=== PATIENT | female | born 1990 | race Caucasian/White ===

== ENCOUNTER 2017-07-06 07:47 | Emergency (ER) | payer SELFPAY ==
[~2017-07-06] VITALS: Ht 165.1 cm; Wt 59.9 kg
--- OUTSIDE RECORDS SUMMARY | 2017-07-06 07:55 | XMS REPORT | Clinical Summary ---
Author Author Admin, ALEXA Organization [facility] Address Unknown Phone Unavailable Allergies, Adverse Reactions, Alerts Allergy Name Reaction Description Start Date Severity Status Provider CINDY Critical Active David Chew MD LATEX Critical Active Katie Ghotra MD Conditions or Problems Problem Name Problem Code Onset Date Status Entry Date Provider Comment Standard Description Annotate FH DIABETES V18.0 Active David Chew MD Family history of diabetes mellitus SUPERVISION OF OTHER NORMAL V22.1 Active David Chew MD Supervision of other normal DEPRESSION 311 Active Katie Ghotra MD Depressive disorder, not elsewhere classified VAGINAL DISCHARGE 623.5 Active Katie Ghotra MD Leukorrhea, not specified as infective TOBACCOISM IN 649.03 Active Katie Ghotra MD Tobacco use disorder complicating , childbirth, or the puerperium, antepartum condition or complication Pleurisy 511.0 Active David Chew MD Pleurisy without mention of effusion or current tuberculosis V22.2 Active David Chew MD state, incidental Vaginal bleeding, first trimester 641.90 Active Jaycob Delvalle MD Unspecified antepartum hemorrhage, unspecified as to episode of care or not applicable Miscarriage 634.90 Active David Chew MD Spontaneous , unspecified, without mention of complication Trichomonal infection 131.9 Active David Chew MD Trichomoniasis, unspecified Medication List Medication Instructions Start Date Stop Date Generic Name NDC Status Provider Patient Instruction FLAGYL 500 MG TAB 1 tablet by mouth three times daily METRONIDAZOLE 39399903035 Active David Chew MD Active TRAMADOL HCL 50 MG TABS 1 po q6hrs prn pain TRAMADOL HCL 29882682840 Active David Chew MD Active PREDNISONE 20 MG TAB 2 tabs daily for 3 days, 1 tab daily for 3 days, 1/2 tab daily for 2 days PREDNISONE 21603614647 No Longer Active Jaycob Delvalle MD Active FLAGYL 500 MG TABS 1 tab BID for 7 days METRONIDAZOLE 01122061728 No Longer Active David Chew MD Active AMOXICILLIN 500 MG CAPS 1 CAP PO TID AMOXICILLIN 30831687064 No Longer Active Katie Ghotra MD Active FLAGYL 250 MG TABS 1 TAB PO BID METRONIDAZOLE 82959007084 No Longer Active Katie Ghotra MD Active PREDNISONE 20 MG TAB 3 tabs daily for 3 days, 2 tabs daily for 3 days, 1 tab daily for 3 days, 1/2 tab daily for 3 days PREDNISONE 98605416629 No Longer Active David Chew MD Active [facility] 28-0.8 MG TABS VIT-FE FUMARATE-FA 06890367682 Active David Chew MD Active FLAGYL 250 MG TABS 1 TAB PO BID FLAGYL 250 MG TABS 540241 METRONIDAZOLE Inactive AMOXICILLIN 500 MG CAPS 1 CAP PO TID AMOXICILLIN 500 MG CAPS 834487 AMOXICILLIN Inactive FLAGYL 500 MG TABS 1 tab BID for 7 days FLAGYL 500 MG TABS 734839 METRONIDAZOLE Inactive PREDNISONE 20 MG TAB 2 tabs daily for 3 days, 1 tab daily for 3 days, 1/2 tab daily for 2 days PREDNISONE 20 MG TAB 082356 PREDNISONE Inactive PREDNISONE 20 MG TAB 3 tabs daily for 3 days, 2 tabs daily for 3 days, 1 tab daily for 3 days, 1/2 tab daily for 3 days PREDNISONE 20 MG TAB 614871 PREDNISONE Inactive Immunizations Vaccine Administration Date Value Standard Description Adacel (Tetanus, reduced Diphtheria, and acellular Pertussis Immunization) Adacel [[id number]] tetanus toxoid, reduced diphtheria toxoid, and acellular pertussis vaccine, adsorbed hepatitis B vaccine series no hepatitis B vaccine, unspecified formulation Vital Signs Date Name Value Unit Range Description blood pressure, diastolic - 8462-4 69 mm[Hg] BP finley blood pressure, systolic - 8480-6 115 mm[Hg] BP sys pulse rate E&M - 8867-4 111 /min Heart rate temperature E&M 99.9 [degF] Body temperature weight E&M - 3141-9 128 [lb_av] Weight Measured blood pressure, diastolic - 8462-4 61 mm[Hg] BP finley blood pressure, systolic - 8480-6 113 mm[Hg] BP sys pulse rate E&M - 8867-4 88 /min Heart rate temperature E&M 97.6 [degF] Body temperature weight E&M - 3141-9 131.5 [lb_av] Weight Measured blood pressure, diastolic - 8462-4 55 mm[Hg] BP finley blood pressure, systolic - 8480-6 90 mm[Hg] BP sys pulse rate E&M - 8867-4 99 /min Heart rate temperature E&M 97.4 [degF] Body temperature weight E&M - 3141-9 131.30 [lb_av] Weight Measured Encounters Code Encounter Date Provider Facility CPT-30386 Level 3 Est. Patient 18:33:30 CDT David Chew MD [facility] CPT-27810 Level 3 Est. Patient 15:42:57 CDT David Chew MD [facility] CPT-00319 Level 3 Est. Patient 17:04:12 CDT Jaycob Delvalle MD [facility] CPT-30702 Level 3 Est. Patient 13:47:10 CDT David Chew MD [facility] Procedures Code Procedure Name Date Entry Date Standard Description CPT-87242 [facility] Quant - LAB USE ONLY 17:05:18 CDT CPT-16896 Venipuncture Draw Fee 17:05:18 CDT CPT-01824 [facility] Quant - LAB USE ONLY 15:51:05 CDT CPT-55394 Venipuncture Draw Fee 15:51:05 CDT CPT-91501 Wet Mount - LAB USE ONLY 17:14:30 CDT CPT-50925 Administration single or combination vaccine inc oral 12 :27:32 CDT CPT-80851 Tdap 12:27:32 CDT CPT-20835 Visit 12:15:18 CDT CPT-97582 Visit 11:22:43 CDT CPT-92385 Spec Collection and Handling Fee 14:34:15 CDT CPT-43980 Visit 14:34:15 CDT
--- OUTSIDE RECORDS SUMMARY | 2017-07-06 07:55 | XMS REPORT | Clinical Summary ---
Author Author Admin, VINODE Organization [facility] Address Unknown Phone Unavailable Allergies, Adverse Reactions, [...] V22.2 Active David Chew MD state, incidental Medication List Medication Instructions Start Date Stop Date Generic Name NDC Status Provider Patient Instruction PREDNISONE 20 MG TAB 2 tabs daily for 3 days, 1 tab daily for 3 days, 1/2 tab daily for 2 days PREDNISONE 72934141277 Active David Chew MD Active FLAGYL 500 MG TABS 1 tab BID for 7 days METRONIDAZOLE 18387423297 No Longer Active David Chew MD Active AMOXICILLIN 500 MG CAPS 1 CAP PO TID AMOXICILLIN 93854875246 No Longer Active Katie Ghotra MD Active FLAGYL 250 MG TABS 1 TAB PO BID METRONIDAZOLE 04651309149 No Longer Active Katie Ghotra MD Active PREDNISONE 20 MG TAB 3 tabs daily for 3 days, 2 tabs daily for 3 days, 1 tab daily for 3 days, 1/2 tab daily for 3 days PREDNISONE 61906649149 No Longer Active David Chew MD Active [facility] 28-0.8 MG TABS VIT-FE FUMARATE-FA 00683821962 Active David Chew MD Active FLAGYL 250 MG TABS 1 TAB PO BID FLAGYL 250 MG TABS 045329 METRONIDAZOLE Inactive AMOXICILLIN 500 MG CAPS 1 CAP PO TID AMOXICILLIN 500 MG CAPS 717044 AMOXICILLIN Inactive FLAGYL 500 MG TABS 1 tab BID for 7 days FLAGYL 500 MG TABS 998106 METRONIDAZOLE Inactive PREDNISONE 20 MG TAB 3 tabs daily for 3 days, 2 tabs daily for 3 days, 1 tab daily for 3 days, 1/2 tab daily for 3 days PREDNISONE 20 MG TAB 986018 PREDNISONE Inactive Immunizations Vaccine Administration Date Value Standard Description Adacel (Tetanus, reduced Diphtheria, and acellular Pertussis Immunization) Adacel [[id number]] tetanus toxoid, reduced diphtheria toxoid, and acellular pertussis vaccine, adsorbed hepatitis B vaccine series no hepatitis B vaccine, unspecified formulation Vital Signs Date Name Value Unit Range Description blood pressure, diastolic - 8462-4 55 mm[Hg] BP finley blood pressure, systolic - 8480-6 90 mm[Hg] BP sys pulse rate E&M - 8867-4 99 /min Heart rate temperature E&M 97.4 [degF] Body temperature weight E&M - 3141-9 131.30 [lb_av] Weight Measured Encounters Code Encounter Date Provider Facility CPT-86569 Level 3 Est. Patient 13:47:10 CDT David Chew MD [facility] Procedures Code Procedure Name Date Entry Date Standard Description CPT-49359 Administration single or combination vaccine inc oral 12 :27:32 CDT CPT-55898 Tdap 12:27:32 CDT CPT-38898 Visit 12:15:18 CDT CPT-04497 Visit 11:22:43 CDT CPT-06868 Spec Collection and Handling Fee 14:34:15 CDT CPT-53662 Visit 14:34:15 CDT
--- OUTSIDE RECORDS SUMMARY | 2017-07-06 07:56 | XMS REPORT | Clinical Summary ---
Author Author Admin, ALEXA Organization [facility] Address Unknown Phone Unavailable Allergies, Adverse Reactions, [...] elsewhere classified VAGINAL DISCHARGE 623.5 Active Katie Ghorta MD Leukorrhea, not specified as infective TOBACCOISM [...] Spontaneous , unspecified, without mention of complication Medication List Medication Instructions Start Date Stop Date Generic Name NDC Status Provider Patient Instruction FLAGYL 500 MG TAB 1 tablet by mouth three times daily METRONIDAZOLE 84028837783 Active David Chew MD Active TRAMADOL HCL 50 MG TABS 1 po q6hrs prn pain TRAMADOL HCL 06387371046 Active David Chew MD Active PREDNISONE 20 MG TAB 2 tabs daily for 3 days, 1 tab daily for 3 days, 1/2 tab daily for 2 days PREDNISONE 25532837031 No Longer Active Jaycob Delvalle MD Active FLAGYL 500 MG TABS 1 tab BID for 7 days METRONIDAZOLE 28337619785 No Longer Active David Chew MD Active AMOXICILLIN 500 MG CAPS 1 CAP PO TID AMOXICILLIN 76362458321 No Longer Active Katie Ghotra MD Active FLAGYL 250 MG TABS 1 TAB PO BID METRONIDAZOLE 82088455913 No Longer Active Katie Ghotra MD Active PREDNISONE 20 MG TAB 3 tabs daily for 3 days, 2 tabs daily for 3 days, 1 tab daily for 3 days, 1/2 tab daily for 3 days PREDNISONE 99197903815 No Longer Active David Chew MD Active [facility] 28-0.8 MG TABS VIT-FE FUMARATE-FA 06462780275 Active David Chew MD Active FLAGYL 250 MG TABS 1 TAB PO BID FLAGYL 250 MG TABS 096575 METRONIDAZOLE Inactive AMOXICILLIN 500 MG CAPS 1 CAP PO TID AMOXICILLIN 500 MG CAPS 304406 AMOXICILLIN Inactive FLAGYL 500 MG TABS 1 tab BID for 7 days FLAGYL 500 MG TABS 420374 METRONIDAZOLE Inactive PREDNISONE 20 MG TAB 2 tabs daily for 3 days, 1 tab daily for 3 days, 1/2 tab daily for 2 days PREDNISONE 20 MG TAB 757955 PREDNISONE Inactive PREDNISONE 20 MG TAB 3 tabs daily for 3 days, 2 tabs daily for 3 days, 1 tab daily for 3 days, 1/2 tab daily for 3 days PREDNISONE 20 MG TAB 151574 PREDNISONE Inactive Immunizations Vaccine Administration Date Value Standard Description Adacel (Tetanus, reduced Diphtheria, and acellular Pertussis Immunization) Adacel [[id number]] tetanus toxoid, reduced diphtheria toxoid, and acellular pertussis vaccine, adsorbed hepatitis B vaccine series no hepatitis B vaccine, unspecified formulation Vital Signs Date Name Value Unit Range Description blood pressure, diastolic - 8462-4 61 mm[Hg] [...] Measured Encounters Code Encounter Date Provider Facility CPT-30840 Level 3 Est. Patient 15:42:57 CDT David Chew MD [facility] CPT-62222 Level 3 Est. Patient 17:04:12 CDT Jaycob Delvalle MD [facility] CPT-09922 Level 3 Est. Patient 13:47:10 CDT David Chew MD [facility] Procedures Code Procedure Name Date Entry Date Standard Description CPT-15826 [facility] Quant - LAB USE ONLY 15:51:05 CDT CPT-01380 Venipuncture Draw Fee 15:51:05 CDT CPT-41881 Wet Mount - LAB USE ONLY 17:14:30 CDT CPT-08381 Administration single or combination vaccine inc oral 12 :27:32 CDT CPT-09141 Tdap 12:27:32 CDT CPT-27578 Visit 12:15:18 CDT CPT-44138 Visit 11:22:43 CDT CPT-07547 Spec Collection and Handling Fee 14:34:15 CDT CPT-17284 Visit 14:34:15 CDT
--- OUTSIDE RECORDS SUMMARY | 2017-07-06 07:56 | XMS REPORT | Clinical Summary ---
Author Author Admin, ALEXA Organization [facility] Address Unknown Phone Unavailable Allergies, Adverse [...] to episode of care or not applicable Medication List Medication Instructions Start Date Stop Date Generic Name NDC Status Provider Patient Instruction PREDNISONE 20 MG TAB 2 tabs daily for 3 days, 1 tab daily for 3 days, 1/2 tab daily for 2 days PREDNISONE 02598697734 No Longer Active Jaycob Delvalle MD Active FLAGYL 500 MG TABS 1 tab BID for 7 days METRONIDAZOLE 63621353139 No Longer Active David Chew MD Active AMOXICILLIN 500 MG CAPS 1 CAP PO TID AMOXICILLIN 88212843423 No Longer Active Katie Ghotra MD Active FLAGYL 250 MG TABS 1 TAB PO BID METRONIDAZOLE 20779817641 No Longer Active Katie Ghotra MD Active PREDNISONE 20 MG TAB 3 tabs daily for 3 days, 2 tabs daily for 3 days, 1 tab daily for 3 days, 1/2 tab daily for 3 days PREDNISONE 30997046485 No Longer Active David Chew MD Active [facility] 28-0.8 MG TABS VIT-FE FUMARATE-FA 50765127814 Active David Chew MD Active FLAGYL 250 MG TABS 1 TAB PO BID FLAGYL 250 MG TABS 066519 METRONIDAZOLE Inactive AMOXICILLIN 500 MG CAPS 1 CAP PO TID AMOXICILLIN 500 MG CAPS 840728 AMOXICILLIN Inactive FLAGYL 500 MG TABS 1 tab BID for 7 days FLAGYL 500 MG TABS 868779 METRONIDAZOLE Inactive PREDNISONE 20 MG TAB 2 tabs daily for 3 days, 1 tab daily for 3 days, 1/2 tab daily for 2 days PREDNISONE 20 MG TAB 154703 PREDNISONE Inactive PREDNISONE 20 MG TAB 3 tabs daily for 3 days, 2 tabs daily for 3 days, 1 tab daily for 3 days, 1/2 tab daily for 3 days PREDNISONE 20 MG TAB 726154 PREDNISONE Inactive Immunizations Vaccine Administration Date Value Standard Description Adacel (Tetanus, reduced Diphtheria, and acellular Pertussis Immunization) Adacel [[id number]] tetanus toxoid, reduced diphtheria toxoid, and acellular [...] Measured Encounters Code Encounter Date Provider Facility CPT-73355 Level 3 Est. Patient 17:04:12 CDT Jaycob Delvalle MD [facility] CPT-66827 Level 3 Est. Patient 13:47:10 CDT David Chew MD [facility] Procedures Code Procedure Name Date Entry Date Standard Description CPT-93827 Wet Mount - LAB USE ONLY 17:14:30 CDT CPT-62313 Administration single or combination vaccine inc oral 12 :27:32 CDT CPT-06115 Tdap 12:27:32 CDT CPT-67133 Visit 12:15:18 CDT CPT-58698 Visit 11:22:43 CDT CPT-70993 Spec Collection and Handling Fee 14:34:15 CDT CPT-62243 Visit 14:34:15 CDT
--- OUTSIDE RECORDS SUMMARY | 2017-07-06 07:56 | XMS REPORT | Clinical Summary ---
Author Author Admin, ALEXA Organization [facility] Address Unknown Phone Unavailable Allergies, Adverse Reactions, [...] tablet by mouth three times daily METRONIDAZOLE 92068405155 Active David Chew MD Active TRAMADOL HCL 50 MG TABS 1 po q6hrs prn pain TRAMADOL HCL 27591748350 Active David Chew MD Active PREDNISONE 20 MG TAB 2 tabs daily for 3 days, 1 tab daily for 3 days, 1/2 tab daily for 2 days PREDNISONE 23529988218 No Longer Active Jaycob Delvalle MD Active FLAGYL 500 MG TABS 1 tab BID for 7 days METRONIDAZOLE 09902271425 No Longer Active David Chew MD Active AMOXICILLIN 500 MG CAPS 1 CAP PO TID AMOXICILLIN 16395523418 No Longer Active Katie Ghotra MD Active FLAGYL 250 MG TABS 1 TAB PO BID METRONIDAZOLE 00221646910 No Longer Active Katie Ghotra MD Active PREDNISONE 20 MG TAB 3 tabs daily for 3 days, 2 tabs daily for 3 days, 1 tab daily for 3 days, 1/2 tab daily for 3 days PREDNISONE 35075038710 No Longer Active David Chew MD Active [facility] 28-0.8 MG TABS VIT-FE FUMARATE-FA 35765366867 Active David Chew MD Active FLAGYL 250 MG TABS 1 TAB PO BID FLAGYL 250 MG TABS 383971 METRONIDAZOLE Inactive AMOXICILLIN 500 MG CAPS 1 CAP PO TID AMOXICILLIN 500 MG CAPS 288937 AMOXICILLIN Inactive FLAGYL 500 MG TABS 1 tab BID for 7 days FLAGYL 500 MG TABS 890566 METRONIDAZOLE Inactive PREDNISONE 20 MG TAB 2 tabs daily for 3 days, 1 tab daily for 3 days, 1/2 tab daily for 2 days PREDNISONE 20 MG TAB 005021 PREDNISONE Inactive PREDNISONE 20 MG TAB 3 tabs daily for 3 days, 2 tabs daily for 3 days, 1 tab daily for 3 days, 1/2 tab daily for 3 days PREDNISONE 20 MG TAB 345113 PREDNISONE Inactive Immunizations Vaccine Administration Date Value Standard Description Adacel (Tetanus, reduced Diphtheria, and acellular Pertussis Immunization) Adacel [[id number]] tetanus toxoid, reduced diphtheria toxoid, and acellular [...] Measured Encounters Code Encounter Date Provider Facility CPT-45640 Level 3 Est. Patient 18:33:30 CDT David Chew MD [facility] CPT-46281 Level 3 Est. Patient 15:42:57 CDT David Chew MD [facility] CPT-25723 Level 3 Est. Patient 17:04:12 CDT Jaycob Delvalle MD [facility] CPT-74760 Level 3 Est. Patient 13:47:10 CDT David Chew MD [facility] Procedures Code Procedure Name Date Entry Date Standard Description CPT-01747 [facility] Quant - LAB USE ONLY 15:51:05 CDT CPT-34514 Venipuncture Draw Fee 15:51:05 CDT CPT-09878 Wet Mount - LAB USE ONLY 17:14:30 CDT CPT-03362 Administration single or combination vaccine inc oral 12 :27:32 CDT CPT-28030 Tdap 12:27:32 CDT CPT-49172 Visit 12:15:18 CDT CPT-80867 Visit 11:22:43 CDT CPT-49401 Spec Collection and Handling Fee 14:34:15 CDT CPT-18799 Visit 14:34:15 CDT
--- OUTSIDE RECORDS SUMMARY | 2017-07-06 07:56 | XMS REPORT ---
Author Author [facility] Medical Staff Organization [facility] Address [address] [place], [place] [address] Phone [phone] Care Team Providers Care Shaker Repairer Name Role Phone MT CHEW MD PP [phone] Summary purpose TRANSITION OF CARE AUTO GENERATION Chief Complaint and Reason for Visit No authorized Reason for Visit (Admitting Diagnosis) is available for this visit. Problem list No authorized problems tracked for continuity of care are available for this visit. Encounters No authorized problems tracked for encounter diagnoses are available for this visit. Medications No medications recorded for this patient visit Allergies, adverse reactions, alerts Allergen Category Ingredient Status Reaction Severity Onset Latex Environmental Allergy LATEX Confirmed or Verified Hives Latex Drug Allergy Latex Confirmed or Verified Hives mushrooms Food Allergy mushrooms Confirmed or Verified Immunizations No immunizations recorded for this patient visit Relevant diagnostic tests and/or laboratory data RESULTS Routine Urinalysis 71-00-205378:00:00 Result Normal Range Units Color YELLOW Clarity Clear Specific [place] 1.020 1.003-1.035 pH 5.5 4.5-8.0 Glucose NEGATIVE Bilirubin NEGATIVE Ketones NEGATIVE Protein NEGATIVE Urobilinogen 0.2 0-0.2 E.U./dL Nitrites NEGATIVE Blood NEGATIVE Leukocytes NEGATIVE WBCs 5-10 RBCs 10-20 Squamous Epithelial 3+ Bacteria 1+ Mucous 1+ Yeast Rare Amount Chemistry 96-70-050084:30:00 Result Normal Range Units Sodium 139 134-145 mEq/l Potassium 4.2 3.5-5.1 mEq/l Chloride 106 98-107 mEq/l CO2 24.7 22-28 mEq/l Glucose 100 70-105 mg/dl BUN 17 7-18 mg/dl Creatinine 0.63 0.6-1.0 mg/dl Calcium L 8.1 8.4-10.2 mg/dl TP - Total Protein 7.3 6.0-8.3 g/dl Albumin 3.8 3.5-5 g/dl Bilirubin - Total 0.3 0.1-1.0 mg/dl AST 12 10-42 IU/L ALT 27 12-65 IU/L ALP 67 25-72 IU/L Osmolality L 279.2 280-300 mOsm/L Albumin/Globulin Ratio 1.1 0-8 Anion GAP 8.3 8-16 BUN/Creatinine Ratio H 27.0 10-20 Estimated GFR 118 >=60 mL/min/1.7 Hematology 15-09-554885:30:00 Result Normal Range Units WBC 6.4 4.8-10.8 103/uL RBC 4.5 4.2-5.4 106/uL HGB 13.6 12.0-16.0 g/dl HCT 41.3 36.9-47.0 % MCV 91.4 81-99 FL MCH 30.1 27-31 pg MCHC L 32.9 33-37 g/dl RDW 12.4 11.5-15.5 % PLT 318 130-400 103/uL MPV 9.0 7.3-10.4 FL Neutro % 43.8 40-70 % Lymph % H 41.7 20-40 % Green % 9.3 0-10.0 % Eos % 4.2 0-7.0 % Baso % 0.8 0-2 % Neutro # 2.8 1.5-7.5 103/uL Lymph # 2.7 0.9-4.0 103/uL Green # 0.6 0-0.8 103/uL Eos # 0.3 0-0.6 103/uL Baso # 0.1 0-0.1 103/uL Body Fluid [id number]:00:00 Result Normal Range Units pH 5.5 4.5-8.0 Radiology Results 15-49-563904:43:00 Abdomen 2 View PACs Image DATE OF EXAM: 2014 RAD 0037-ABDOMEN 2 VIEW : RADIOLOGY REPORT DATE OF SERVICE: 08/27/15 HISTORY: Abdominal pain ABDOMEN 2 VIEWS 0936 HOURS The bowel gas pattern is normal. This exam appears to have been performed with clothing in place. There is a curvilinear density overlying the left lower pelvis. There are no pathological calcifications. There is no free air, obstruction, or ileus. IMPRESSION: Left lower pelvic curvilinear density. This could reflect an opaque density in patient's clothing. The possibility of a retained surgical sponge or other ingested material within bowel is not entirely excluded. Correlate with any previous surgical history and consider a followup study to determine if this is truly an abnormal finding within the patient. MD ROBERTO Estrada/il08/27/2015 09:40:00 / 08/27/2015 09:49:30 cc:Dr. Mt Chew This document has been electronically Signed by: On: DATE OF EXAM: 2014 RAD 0037-ABDOMEN 2 VIEW : RADIOLOGY REPORT DATE OF SERVICE: 08/27/15 HISTORY: Abdominal pain ABDOMEN 2 VIEWS 0936 HOURS The bowel gas pattern is normal. This exam appears to have been performed with clothing in place. There is a curvilinear density overlying the left lower pelvis. There are no pathological calcifications. There is no free air, obstruction, or ileus. IMPRESSION: Left lower pelvic curvilinear density. This could reflect an opaque density in patient's clothing. The possibility of a retained surgical sponge or other ingested material within bowel is not entirely excluded. Correlate with any previous surgical history and consider a followup study to determine if this is truly an abnormal finding within the patient. MD ROBERTO Estrada/il08/27/2015 09:40:00 / 08/27/2015 09:49:30 cc:Dr. Mt Chew This document has been electronically Signed by: GRAY XIONG MD On: 20141:43P Result Amended on 2015-08-27 at 13:44:00. Previous status was DC. [id number]:30:00 Result Normal Range Units MPV 9.0 7.3-10.4 FL History of procedures Procedure Code Code Type Description Date Performed Performing Physician 73782 CPT-4 ROUTINE VENIPUNCTURE 08-27-2015 YULIYA VILLANUEVA 61488 CPT-4 X-RAY EXAM OF ABDOMEN 08-27-2015 YULIYA VILLANUEVA 45125 CPT-4 COMPREHEN METABOLIC PANEL 08-27-2015 YULIYA VILLANUEVA 70634 CPT-4 URINALYSIS, AUTO W/SCOPE 08-27-2015 YULIYA VILLANUEVA 34200 CPT-4 URINE TEST 08-27-2015 YULIYA VILLANUEVA 90782 CPT-4 COMPLETE CBC W/AUTO DIFF WBC 08-27-2015 YULIYA VILLANUEVA 29816 CPT-4 HELICOBACTER PYLORI 08-27-2015 YULIYA VILLANUEVA J2405 CPT-4 ONDANSETRON HCL INJECTION 08-27-2015 YULIYA VILLANUEVA 98542 CPT-4 EMERGENCY DEPT VISIT 08-27-2015 YULIYA RICH 50661 CPT-4 THER/PROPH/DIAG INJ, IV PUSH 08-27-2015 YULIYA RICH 73657 CPT-4 EMERGENCY DEPT VISIT 08-27-2015 YULIYA VILLANUEVA Functional status Functional Status Finding Observation Time Abdomen Appearance flat 42-11-491724:05 Abdomen soft 40-14-132940:05 Bowel Sounds present 12-76-574490:05 Urination normal 11-73-563547:05 Quality sym/unlabored 71-50-617588:05 Cough absent :05 Secretions no 64-81-763263:05 Breath Sounds RUL clear :05 Breath Sounds RML clear 57-32-328922:05 Breath Sounds RLL clear :05 Breath Sounds LIA clear :05 Breath Sounds LLL clear 63-49-812123:05 Airway natural 74-52-635034:05 Chest Tube no 36-50-472867:05 Oxygen no :50 Temp >100.4 no 83-66-899158:50 Temp <96.8 no 72-72-873887:50 Chills with rigors no :50 HR > 90bpm no 57-25-088075:50 Respirations > 20 no 88-95-087169:50 Systolic <90 no 58-13-101767:50 headache stiff neck no 40-00-299472:50 WBC > 55565 no 52-88-276380:50 WBC < 4000 no 34-72-704730:50 Rapid Resp no 69-67-685361:05 IV Site Location L hand 98-09-052234:25 IV Type peripheral 34-27-837651:50 IV Site Information discontinued 63-61-207904:50 IV Site Start Attmpt 1 times Comment: started by James KAUR student 79-20-861522:25 IV Site Dayron 20 94-26-776466:25 IV Site Appearance WNL 20-00-412917:25 IV Site Color clear :25 IV Site Patent yes [id number]:25 Dressing Type occlusive 84-39-171666:25 Nursing Note pt dismissed to home with rx for zofran and note for PO, verbalized understanding of all instructions, out ambulatory in good condition 08-27-2015 09:50 Vital signs Type Value Date Respiration Rate 18breaths per minute 62-98-699483:50 Pulse 89beats per minute :50 Oxygen Saturation 99% 50-12-599578:50 BP Systolic 107mmHg 76-18-997908:50 BP Diastolic 66mmHg 42-68-478358:50 Temperature 98.6F 18-29-109497:50 Social history Type Value Smoking Status CURRENT EVERY DAY SMOKER Treatment Plan No treatment plan text is available for this visit. Hospital discharge instructions Dismissal Condition good Disposition on DC home DC Inst/Educ Give yes Med/Side Effects Rev yes Flu Vac No
--- OUTSIDE RECORDS SUMMARY | 2017-07-06 07:56 | XMS REPORT | Clinical Summary ---
Author Author Admin, ALEXA Organization [facility] [employer] [facility] Address Unknown Phone Unavailable Allergies, [...] tablet by mouth three times daily METRONIDAZOLE 85935945411 Active David Chew MD Active TRAMADOL HCL 50 MG TABS 1 po q6hrs prn pain TRAMADOL HCL 85061322358 Active David Chew MD Active PREDNISONE 20 MG TAB 2 tabs daily for 3 days, 1 tab daily for 3 days, 1/2 tab daily for 2 days PREDNISONE 73125695986 No Longer Active Jaycob Delvalle MD Active FLAGYL 500 MG TABS 1 tab BID for 7 days METRONIDAZOLE 56280958616 No Longer Active David Chew MD Active AMOXICILLIN 500 MG CAPS 1 CAP PO TID AMOXICILLIN 18891930300 No Longer Active Katie Ghotra MD Active FLAGYL 250 MG TABS 1 TAB PO BID METRONIDAZOLE 60337948563 No Longer Active Katie Ghotra MD Active PREDNISONE 20 MG TAB 3 tabs daily for 3 days, 2 tabs daily for 3 days, 1 tab daily for 3 days, 1/2 tab daily for 3 days PREDNISONE 22011859281 No Longer Active David Chew MD Active [facility] 28-0.8 MG TABS VIT-FE FUMARATE-FA 39517220170 Active David Chew MD Active FLAGYL 250 MG TABS 1 TAB PO BID FLAGYL 250 MG TABS 952862 METRONIDAZOLE Inactive AMOXICILLIN 500 MG CAPS 1 CAP PO TID AMOXICILLIN 500 MG CAPS 694404 AMOXICILLIN Inactive FLAGYL 500 MG TABS 1 tab BID for 7 days FLAGYL 500 MG TABS 844341 METRONIDAZOLE Inactive PREDNISONE 20 MG TAB 2 tabs daily for 3 days, 1 tab daily for 3 days, 1/2 tab daily for 2 days PREDNISONE 20 MG TAB 096754 PREDNISONE Inactive PREDNISONE 20 MG TAB 3 tabs daily for 3 days, 2 tabs daily for 3 days, 1 tab daily for 3 days, 1/2 tab daily for 3 days PREDNISONE 20 MG TAB 231603 PREDNISONE Inactive Immunizations Vaccine Administration Date Value Standard Description Adacel (Tetanus, reduced Diphtheria, and acellular Pertussis Immunization) Adacel [[id number]] tetanus toxoid, reduced diphtheria toxoid, and acellular [...] Measured Encounters Code Encounter Date Provider Facility CPT-62090 Level 3 Est. Patient 18:33:30 CDT David Chew MD [facility] CPT-80318 Level 3 Est. Patient 15:42:57 CDT David Chew MD [facility] CPT-21214 Level 3 Est. Patient 17:04:12 CDT Jaycob Delvalle MD [facility] CPT-59001 Level 3 Est. Patient 13:47:10 CDT David Chew MD [facility] Procedures Code Procedure Name Date Entry Date Standard Description CPT-18010 BHCG Quant - LAB USE ONLY 15:51:05 CDT CPT-48737 Venipuncture Draw Fee 15:51:05 CDT CPT-60227 Wet Mount - LAB USE ONLY 17:14:30 CDT CPT-09961 Administration single or combination vaccine inc oral 12 :27:32 CDT CPT-74913 Tdap 12:27:32 CDT CPT-18209 Visit 12:15:18 CDT CPT-88592 Visit 11:22:43 CDT CPT-21129 Spec Collection and Handling Fee 14:34:15 CDT CPT-59762 Visit 14:34:15 CDT
--- OUTSIDE RECORDS SUMMARY | 2017-07-06 07:56 | XMS REPORT | Clinical Summary ---
Author Author Admin, ALEXA Organization [facility] [facility] Address Unknown Phone Unavailable Allergies, Adverse Reactions, [...] 1/2 tab daily for 2 days PREDNISONE 98833058908 No Longer Active Jaycob Delvalle MD Active FLAGYL 500 MG TABS 1 tab BID for 7 days METRONIDAZOLE 65406416717 No Longer Active David Chew MD Active AMOXICILLIN 500 MG CAPS 1 CAP PO TID AMOXICILLIN 55326615862 No Longer Active Katie Ghotra MD Active FLAGYL 250 MG TABS 1 TAB PO BID METRONIDAZOLE 80161204520 No Longer Active Katie Ghotra MD Active PREDNISONE 20 MG TAB 3 tabs daily for 3 days, 2 tabs daily for 3 days, 1 tab daily for 3 days, 1/2 tab daily for 3 days PREDNISONE 01379345519 No Longer Active David Chew MD Active [facility]S 28-0.8 MG TABS VIT-FE FUMARATE-FA 98287091159 Active David Chew MD Active FLAGYL 250 MG TABS 1 TAB PO BID FLAGYL 250 MG TABS 019560 METRONIDAZOLE Inactive AMOXICILLIN 500 MG CAPS 1 CAP PO TID AMOXICILLIN 500 MG CAPS 584192 AMOXICILLIN Inactive FLAGYL 500 MG TABS 1 tab BID for 7 days FLAGYL 500 MG TABS 145146 METRONIDAZOLE Inactive PREDNISONE 20 MG TAB 2 tabs daily for 3 days, 1 tab daily for 3 days, 1/2 tab daily for 2 days PREDNISONE 20 MG TAB 644624 PREDNISONE Inactive PREDNISONE 20 MG TAB 3 tabs daily for 3 days, 2 tabs daily for 3 days, 1 tab daily for 3 days, 1/2 tab daily for 3 days PREDNISONE 20 MG TAB 629412 PREDNISONE Inactive Immunizations Vaccine Administration Date Value Standard Description Adacel (Tetanus, reduced Diphtheria, and acellular Pertussis Immunization) Adacel [[id number]] tetanus toxoid, reduced diphtheria toxoid, and acellular [...] Measured Encounters Code Encounter Date Provider Facility CPT-35408 Level 3 Est. Patient 17:04:12 CDT Jaycob Delvalle MD [facility] CPT-92203 Level 3 Est. Patient 13:47:10 CDT David Chew MD [facility] Procedures Code Procedure Name Date Entry Date Standard Description CPT-50936 Wet Mount - LAB USE ONLY 17:14:30 CDT CPT-55301 Administration single or combination vaccine inc oral 12 :27:32 CDT CPT-40683 Tdap 12:27:32 CDT CPT-06469 Visit 12:15:18 CDT CPT-42611 Visit 11:22:43 CDT CPT-58942 Spec Collection and Handling Fee 14:34:15 CDT CPT-10792 Visit 14:34:15 CDT
--- OUTSIDE RECORDS SUMMARY | 2017-07-06 07:57 | XMS REPORT ---
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 Problem Acute sinusitis, unspecified 461.9 Active Problem Cellulitis and abscess of unspecified site 682.9 Active Assessment Dental examination Z01.20 Active Problem Nausea with vomiting 787.01 Active Problem Spasm of muscle 728.85 Active Problem Acute pharyngitis 462 Active Problem Abdominal pain, other specified site 789.09 Active Problem Screening examination for venereal disease V74.5 Active Problem state, incidental V22.2 Active Problem Cellulitis and abscess of leg, except foot 682.6 Active Medications Medication Code System Code Instructions Start Date End Date Status Dosage Magic Mouthwash NDC 0 30 ML each of 2% Viscous Lidocaine/Maalox/Benadryl PRN Aug 07, 2016 as directed Ibuprofen NDC 0 not defined Amoxicillin NDC [address]-80 500 MG Orally 4 times a day 1 capsule Procedures Procedure Coding System Code Date PANORAMIC FILM SEE ALSO CODE 29051 CPT-4 D0330 Aug 07, 2016 LTD ORAL EVALUATION - PROBLEM FOCUS CPT-4 D0140 Aug 07, 2016 Vital Signs Date/Time: Aug 07, 2016 Blood Pressure Diastolic 53 mmHg Blood Pressure Systolic 106 mmHg Height 65 in Results No Known Results Summary Purpose eClinicalWorks Submission
--- OUTSIDE RECORDS SUMMARY | 2017-07-06 07:57 | XMS REPORT | Clinical Summary ---
Author Author Admin, VINODE Organization [facility] Address Unknown Phone Unavailable Allergies, Adverse [...] tablet by mouth three times daily METRONIDAZOLE 52456325148 Active David Chew MD Active TRAMADOL HCL 50 MG TABS 1 po q6hrs prn pain TRAMADOL HCL 62177317796 Active David Chew MD Active PREDNISONE 20 MG TAB 2 tabs daily for 3 days, 1 tab daily for 3 days, 1/2 tab daily for 2 days PREDNISONE 49551854228 No Longer Active Jaycob Delvalle MD Active FLAGYL 500 MG TABS 1 tab BID for 7 days METRONIDAZOLE 05680206671 No Longer Active David Chew MD Active AMOXICILLIN 500 MG CAPS 1 CAP PO TID AMOXICILLIN 28664572286 No Longer Active Katie Ghotra MD Active FLAGYL 250 MG TABS 1 TAB PO BID METRONIDAZOLE 70909417250 No Longer Active Katie Ghotra MD Active PREDNISONE 20 MG TAB 3 tabs daily for 3 days, 2 tabs daily for 3 days, 1 tab daily for 3 days, 1/2 tab daily for 3 days PREDNISONE 18095819143 No Longer Active David Chew MD Active [facility]S 28-0.8 MG TABS VIT-FE FUMARATE-FA 07802900456 Active David Chew MD Active FLAGYL 250 MG TABS 1 TAB PO BID FLAGYL 250 MG TABS 113738 METRONIDAZOLE Inactive AMOXICILLIN 500 MG CAPS 1 CAP PO TID AMOXICILLIN 500 MG CAPS 434220 AMOXICILLIN Inactive FLAGYL 500 MG TABS 1 tab BID for 7 days FLAGYL 500 MG TABS 791217 METRONIDAZOLE Inactive PREDNISONE 20 MG TAB 2 tabs daily for 3 days, 1 tab daily for 3 days, 1/2 tab daily for 2 days PREDNISONE 20 MG TAB 252899 PREDNISONE Inactive PREDNISONE 20 MG TAB 3 tabs daily for 3 days, 2 tabs daily for 3 days, 1 tab daily for 3 days, 1/2 tab daily for 3 days PREDNISONE 20 MG TAB 278775 PREDNISONE Inactive Immunizations Vaccine Administration Date Value Standard Description Adacel (Tetanus, reduced Diphtheria, and acellular Pertussis Immunization) Adacel [[id number]] tetanus toxoid, reduced diphtheria toxoid, and acellular [...] Measured Encounters Code Encounter Date Provider Facility CPT-00246 Level 3 Est. Patient 15:42:57 CDT David Chew MD [facility] CPT-96259 Level 3 Est. Patient 17:04:12 CDT Jaycob Delvalle MD [facility] CPT-11017 Level 3 Est. Patient 13:47:10 CDT David Chew MD [facility] Procedures Code Procedure Name Date Entry Date Standard Description CPT-24445 BHCG Quant - LAB USE ONLY 15:51:05 CDT CPT-96710 Venipuncture Draw Fee 15:51:05 CDT CPT-73859 Wet Mount - LAB USE ONLY 17:14:30 CDT CPT-47155 Administration single or combination vaccine inc oral 12 :27:32 CDT CPT-62164 Tdap 12:27:32 CDT CPT-75082 Visit 12:15:18 CDT CPT-81425 Visit 11:22:43 CDT CPT-07388 Spec Collection and Handling Fee 14:34:15 CDT CPT-69622 Visit 14:34:15 CDT
--- OUTSIDE RECORDS SUMMARY | 2017-07-06 07:57 | XMS REPORT | Clinical Summary ---
Author Author Admin, ALEXA Organization [facility] [employer] Address Unknown Phone Unavailable Allergies, Adverse Reactions, [...] tablet by mouth three times daily METRONIDAZOLE 28538867838 Active David Chew MD Active TRAMADOL HCL 50 MG TABS 1 po q6hrs prn pain TRAMADOL HCL 79928461066 Active David Chew MD Active PREDNISONE 20 MG TAB 2 tabs daily for 3 days, 1 tab daily for 3 days, 1/2 tab daily for 2 days PREDNISONE 66881046453 No Longer Active Jaycob Delvalle MD Active FLAGYL 500 MG TABS 1 tab BID for 7 days METRONIDAZOLE 61832735010 No Longer Active David Chew MD Active AMOXICILLIN 500 MG CAPS 1 CAP PO TID AMOXICILLIN 28716571475 No Longer Active Katie Ghotra MD Active FLAGYL 250 MG TABS 1 TAB PO BID METRONIDAZOLE 03028989021 No Longer Active Katie Ghotra MD Active PREDNISONE 20 MG TAB 3 tabs daily for 3 days, 2 tabs daily for 3 days, 1 tab daily for 3 days, 1/2 tab daily for 3 days PREDNISONE 03727590283 No Longer Active David Chew MD Active [facility] 28-0.8 MG TABS VIT-FE FUMARATE-FA 32303570888 Active David Chew MD Active FLAGYL 250 MG TABS 1 TAB PO BID FLAGYL 250 MG TABS 093373 METRONIDAZOLE Inactive AMOXICILLIN 500 MG CAPS 1 CAP PO TID AMOXICILLIN 500 MG CAPS 347697 AMOXICILLIN Inactive FLAGYL 500 MG TABS 1 tab BID for 7 days FLAGYL 500 MG TABS 532059 METRONIDAZOLE Inactive PREDNISONE 20 MG TAB 2 tabs daily for 3 days, 1 tab daily for 3 days, 1/2 tab daily for 2 days PREDNISONE 20 MG TAB 836129 PREDNISONE Inactive PREDNISONE 20 MG TAB 3 tabs daily for 3 days, 2 tabs daily for 3 days, 1 tab daily for 3 days, 1/2 tab daily for 3 days PREDNISONE 20 MG TAB 593678 PREDNISONE Inactive Immunizations Vaccine Administration Date Value Standard Description Adacel (Tetanus, reduced Diphtheria, and acellular Pertussis Immunization) Adacel [[id number]] tetanus toxoid, reduced diphtheria toxoid, and acellular [...] Measured Encounters Code Encounter Date Provider Facility CPT-66340 Level 3 Est. Patient 18:33:30 CDT David Chew MD [facility] CPT-76482 Level 3 Est. Patient 15:42:57 CDT David Chew MD [facility] CPT-02698 Level 3 Est. Patient 17:04:12 CDT Jaycob Delvalle MD [facility] CPT-57064 Level 3 Est. Patient 13:47:10 CDT David Chew MD [facility] Procedures Code Procedure Name Date Entry Date Standard Description CPT-34129 BHCG Quant - LAB USE ONLY 15:51:05 CDT CPT-33606 Venipuncture Draw Fee 15:51:05 CDT CPT-84759 Wet Mount - LAB USE ONLY 17:14:30 CDT CPT-29554 Administration single or combination vaccine inc oral 12 :27:32 CDT CPT-73668 Tdap 12:27:32 CDT CPT-62946 Visit 12:15:18 CDT CPT-08801 Visit 11:22:43 CDT CPT-97636 Spec Collection and Handling Fee 14:34:15 CDT CPT-05689 Visit 14:34:15 CDT
--- OUTSIDE RECORDS SUMMARY | 2017-07-06 07:57 | XMS REPORT | Clinical Summary ---
Author Author Admin, ALEXA Organization [employer] [facility] Address Unknown Phone Unavailable Allergies, Adverse Reactions, [...] 1/2 tab daily for 2 days PREDNISONE 95343282246 No Longer Active Jaycob Delvalle MD Active FLAGYL 500 MG TABS 1 tab BID for 7 days METRONIDAZOLE 41802584876 No Longer Active David Chew MD Active AMOXICILLIN 500 MG CAPS 1 CAP PO TID AMOXICILLIN 09213906212 No Longer Active Katie Ghotra MD Active FLAGYL 250 MG TABS 1 TAB PO BID METRONIDAZOLE 87796192006 No Longer Active Katie Ghotra MD Active PREDNISONE 20 MG TAB 3 tabs daily for 3 days, 2 tabs daily for 3 days, 1 tab daily for 3 days, 1/2 tab daily for 3 days PREDNISONE 26730274744 No Longer Active David Chew MD Active [facility] 28-0.8 MG TABS VIT-FE FUMARATE-FA 48459086062 Active David Chew MD Active FLAGYL 250 MG TABS 1 TAB PO BID FLAGYL 250 MG TABS 473234 METRONIDAZOLE Inactive AMOXICILLIN 500 MG CAPS 1 CAP PO TID AMOXICILLIN 500 MG CAPS 480471 AMOXICILLIN Inactive FLAGYL 500 MG TABS 1 tab BID for 7 days FLAGYL 500 MG TABS 700175 METRONIDAZOLE Inactive PREDNISONE 20 MG TAB 2 tabs daily for 3 days, 1 tab daily for 3 days, 1/2 tab daily for 2 days PREDNISONE 20 MG TAB 400859 PREDNISONE Inactive PREDNISONE 20 MG TAB 3 tabs daily for 3 days, 2 tabs daily for 3 days, 1 tab daily for 3 days, 1/2 tab daily for 3 days PREDNISONE 20 MG TAB 180254 PREDNISONE Inactive Immunizations Vaccine Administration Date Value Standard Description Adacel (Tetanus, reduced Diphtheria, and acellular Pertussis Immunization) Adacel [[id number]] tetanus toxoid, reduced diphtheria toxoid, and acellular [...] Measured Encounters Code Encounter Date Provider Facility CPT-16120 Level 3 Est. Patient 17:04:12 CDT Jaycob Delvalle MD [facility] CPT-63176 Level 3 Est. Patient 13:47:10 CDT aDvid Chew MD [facility] Procedures Code Procedure Name Date Entry Date Standard Description CPT-20800 Wet Mount - LAB USE ONLY 17:14:30 CDT CPT-04664 Administration single or combination vaccine inc oral 12 :27:32 CDT CPT-00623 Tdap 12:27:32 CDT CPT-63346 Visit 12:15:18 CDT CPT-35729 Visit 11:22:43 CDT CPT-04463 Spec Collection and Handling Fee 14:34:15 CDT CPT-33378 Visit 14:34:15 CDT
--- OUTSIDE RECORDS SUMMARY | 2017-07-06 07:57 | XMS REPORT | Clinical Summary ---
Author Author Admin, VINODE Organization [employer] Address Unknown Phone Unavailable Allergies, Adverse Reactions, [...] 1/2 tab daily for 2 days PREDNISONE 81620451424 Active David Chew MD Active FLAGYL 500 MG TABS 1 tab BID for 7 days METRONIDAZOLE 87022533508 No Longer Active David Chew MD Active AMOXICILLIN 500 MG CAPS 1 CAP PO TID AMOXICILLIN 22818072676 No Longer Active Katie Ghotra MD Active FLAGYL 250 MG TABS 1 TAB PO BID METRONIDAZOLE 41262247810 No Longer Active Katie Ghotra MD Active PREDNISONE 20 MG TAB 3 tabs daily for 3 days, 2 tabs daily for 3 days, 1 tab daily for 3 days, 1/2 tab daily for 3 days PREDNISONE 31973446488 No Longer Active David Chew MD Active [facility]S 28-0.8 MG TABS VIT-FE FUMARATE-FA 85725395552 Active David Chew MD Active FLAGYL 250 MG TABS 1 TAB PO BID FLAGYL 250 MG TABS 664301 METRONIDAZOLE Inactive AMOXICILLIN 500 MG CAPS 1 CAP PO TID AMOXICILLIN 500 MG CAPS 885363 AMOXICILLIN Inactive FLAGYL 500 MG TABS 1 tab BID for 7 days FLAGYL 500 MG TABS 001509 METRONIDAZOLE Inactive PREDNISONE 20 MG TAB 3 tabs daily for 3 days, 2 tabs daily for 3 days, 1 tab daily for 3 days, 1/2 tab daily for 3 days PREDNISONE 20 MG TAB 063787 PREDNISONE Inactive Immunizations Vaccine Administration Date Value Standard Description Adacel (Tetanus, reduced Diphtheria, and acellular Pertussis Immunization) Adacel [[id number]] tetanus toxoid, reduced diphtheria toxoid, and acellular [...] Measured Encounters Code Encounter Date Provider Facility CPT-82765 Level 3 Est. Patient 13:47:10 CDT David Chew MD [facility] Procedures Code Procedure Name Date Entry Date Standard Description CPT-06366 Administration single or combination vaccine inc oral 12 :27:32 CDT CPT-78757 Tdap 12:27:32 CDT CPT-14523 Visit 12:15:18 CDT CPT-68425 Visit 11:22:43 CDT CPT-68910 Spec Collection and Handling Fee 14:34:15 CDT CPT-64812 Visit 14:34:15 CDT
--- OUTSIDE RECORDS SUMMARY | 2017-07-06 07:58 | XMS REPORT | Clinical Summary ---
Author Author Admin, E Organization [employer] Address Unknown Phone Unavailable Allergies, Adverse Reactions, [...] 1/2 tab daily for 2 days PREDNISONE 38489337724 Active David Chew MD Active FLAGYL 500 MG TABS 1 tab BID for 7 days METRONIDAZOLE 80101445492 No Longer Active David Chew MD Active AMOXICILLIN 500 MG CAPS 1 CAP PO TID AMOXICILLIN 03849109633 No Longer Active Katie Ghotra MD Active FLAGYL 250 MG TABS 1 TAB PO BID METRONIDAZOLE 31743324182 No Longer Active Katie Ghotra MD Active PREDNISONE 20 MG TAB 3 tabs daily for 3 days, 2 tabs daily for 3 days, 1 tab daily for 3 days, 1/2 tab daily for 3 days PREDNISONE 13430611449 No Longer Active David Chew MD Active CVS 28-0.8 MG TABS VIT-FE FUMARATE-FA 77267382362 Active David Chew MD Active FLAGYL 250 MG TABS 1 TAB PO BID FLAGYL 250 MG TABS 176903 METRONIDAZOLE Inactive AMOXICILLIN 500 MG CAPS 1 CAP PO TID AMOXICILLIN 500 MG CAPS 301473 AMOXICILLIN Inactive FLAGYL 500 MG TABS 1 tab BID for 7 days FLAGYL 500 MG TABS 420068 METRONIDAZOLE Inactive PREDNISONE 20 MG TAB 3 tabs daily for 3 days, 2 tabs daily for 3 days, 1 tab daily for 3 days, 1/2 tab daily for 3 days PREDNISONE 20 MG TAB 916292 PREDNISONE Inactive Immunizations Vaccine Administration Date Value Standard Description Adacel (Tetanus, reduced Diphtheria, and acellular Pertussis Immunization) Adacel [BRC494] tetanus toxoid, reduced diphtheria toxoid, and acellular [...] Measured Encounters Code Encounter Date Provider Facility CPT-03778 Level 3 Est. Patient 13:47:10 CDT David Chew MD [facility] Procedures Code Procedure Name Date Entry Date Standard Description CPT-38074 Administration single or combination vaccine inc oral 12 :27:32 CDT CPT-03294 Tdap 12:27:32 CDT CPT-55737 Visit 12:15:18 CDT CPT-06032 Visit 11:22:43 CDT CPT-05213 Spec Collection and Handling Fee 14:34:15 CDT CPT-94457 Visit 14:34:15 CDT
--- OUTSIDE RECORDS SUMMARY | 2017-07-06 07:58 | XMS REPORT | Clinical Summary ---
Author Author Admin, ALEXA Organization [employer] [facility] Address Unknown Phone Unavailable Allergies, [...] 1/2 tab daily for 2 days PREDNISONE 89225957804 No Longer Active Jaycob Delvalle MD Active FLAGYL 500 MG TABS 1 tab BID for 7 days METRONIDAZOLE 88423577164 No Longer Active David Chew MD Active AMOXICILLIN 500 MG CAPS 1 CAP PO TID AMOXICILLIN 27079748364 No Longer Active Katie Ghotra MD Active FLAGYL 250 MG TABS 1 TAB PO BID METRONIDAZOLE 52809375280 No Longer Active Katie Ghotra MD Active PREDNISONE 20 MG TAB 3 tabs daily for 3 days, 2 tabs daily for 3 days, 1 tab daily for 3 days, 1/2 tab daily for 3 days PREDNISONE 25835741293 No Longer Active David Chew MD Active [facility]S 28-0.8 MG TABS VIT-FE FUMARATE-FA 68619112774 Active David Chew MD Active FLAGYL 250 MG TABS 1 TAB PO BID FLAGYL 250 MG TABS 309723 METRONIDAZOLE Inactive AMOXICILLIN 500 MG CAPS 1 CAP PO TID AMOXICILLIN 500 MG CAPS 026054 AMOXICILLIN Inactive FLAGYL 500 MG TABS 1 tab BID for 7 days FLAGYL 500 MG TABS 447512 METRONIDAZOLE Inactive PREDNISONE 20 MG TAB 2 tabs daily for 3 days, 1 tab daily for 3 days, 1/2 tab daily for 2 days PREDNISONE 20 MG TAB 701186 PREDNISONE Inactive PREDNISONE 20 MG TAB 3 tabs daily for 3 days, 2 tabs daily for 3 days, 1 tab daily for 3 days, 1/2 tab daily for 3 days PREDNISONE 20 MG TAB 683706 PREDNISONE Inactive Immunizations Vaccine Administration Date Value Standard Description Adacel (Tetanus, reduced Diphtheria, and acellular Pertussis Immunization) Adacel [[id number]] tetanus toxoid, reduced diphtheria toxoid, and acellular [...] Measured Encounters Code Encounter Date Provider Facility CPT-45007 Level 3 Est. Patient 17:04:12 CDT Jaycob Delvalle MD [facility] CPT-69679 Level 3 Est. Patient 13:47:10 CDT David Chew MD [facility] Procedures Code Procedure Name Date Entry Date Standard Description CPT-10457 Wet Mount - LAB USE ONLY 17:14:30 CDT CPT-45271 Administration single or combination vaccine inc oral 12 :27:32 CDT CPT-02299 Tdap 12:27:32 CDT CPT-52998 Visit 12:15:18 CDT CPT-39803 Visit 11:22:43 CDT CPT-20596 Spec Collection and Handling Fee 14:34:15 CDT CPT-84856 Visit 14:34:15 CDT
--- OUTSIDE RECORDS SUMMARY | 2017-07-06 07:58 | XMS REPORT | Clinical Summary ---
Author Author Admin, VINODE Organization [employer] Address Unknown Phone Unavailable Allergies, Adverse Reactions, [...] 1/2 tab daily for 2 days PREDNISONE 37347222718 Active David Chew MD Active FLAGYL 500 MG TABS 1 tab BID for 7 days METRONIDAZOLE 99251977814 No Longer Active David Chew MD Active AMOXICILLIN 500 MG CAPS 1 CAP PO TID AMOXICILLIN 82509279302 No Longer Active Katie Ghotra MD Active FLAGYL 250 MG TABS 1 TAB PO BID METRONIDAZOLE 59439879374 No Longer Active Katie Ghotra MD Active PREDNISONE 20 MG TAB 3 tabs daily for 3 days, 2 tabs daily for 3 days, 1 tab daily for 3 days, 1/2 tab daily for 3 days PREDNISONE 96230316118 No Longer Active David Chew MD Active [facility] 28-0.8 MG TABS VIT-FE FUMARATE-FA 71040125785 Active David Chew MD Active FLAGYL 250 MG TABS 1 TAB PO BID FLAGYL 250 MG TABS 214208 METRONIDAZOLE Inactive AMOXICILLIN 500 MG CAPS 1 CAP PO TID AMOXICILLIN 500 MG CAPS 703280 AMOXICILLIN Inactive FLAGYL 500 MG TABS 1 tab BID for 7 days FLAGYL 500 MG TABS 041028 METRONIDAZOLE Inactive PREDNISONE 20 MG TAB 3 tabs daily for 3 days, 2 tabs daily for 3 days, 1 tab daily for 3 days, 1/2 tab daily for 3 days PREDNISONE 20 MG TAB 523969 PREDNISONE Inactive Immunizations Vaccine Administration Date Value Standard Description Adacel (Tetanus, reduced Diphtheria, and acellular Pertussis Immunization) Adacel [SOU166] tetanus toxoid, reduced diphtheria toxoid, and acellular [...] Measured Encounters Code Encounter Date Provider Facility CPT-80529 Level 3 Est. Patient 13:47:10 CDT David Chew MD [facility] Procedures Code Procedure Name Date Entry Date Standard Description CPT-88786 Administration single or combination vaccine inc oral 12 :27:32 CDT CPT-44989 Tdap 12:27:32 CDT CPT-43033 Visit 12:15:18 CDT CPT-98784 Visit 11:22:43 CDT CPT-78457 Spec Collection and Handling Fee 14:34:15 CDT CPT-62253 Visit 14:34:15 CDT
--- OUTSIDE RECORDS SUMMARY | 2017-07-06 07:58 | XMS REPORT | Clinical Summary ---
Author Author Admin, ALEXA Organization [facility] Address Unknown Phone Unavailable Allergies, Adverse Reactions, [...] tablet by mouth three times daily METRONIDAZOLE 58044051817 Active David Chew MD Active TRAMADOL HCL 50 MG TABS 1 po q6hrs prn pain TRAMADOL HCL 46218350230 Active David Chew MD Active PREDNISONE 20 MG TAB 2 tabs daily for 3 days, 1 tab daily for 3 days, 1/2 tab daily for 2 days PREDNISONE 42085455651 No Longer Active Jaycob Delvalle MD Active FLAGYL 500 MG TABS 1 tab BID for 7 days METRONIDAZOLE 56782826351 No Longer Active David Chew MD Active AMOXICILLIN 500 MG CAPS 1 CAP PO TID AMOXICILLIN 99959550846 No Longer Active Katie Ghotra MD Active FLAGYL 250 MG TABS 1 TAB PO BID METRONIDAZOLE 25382181762 No Longer Active Katie Ghotra MD Active PREDNISONE 20 MG TAB 3 tabs daily for 3 days, 2 tabs daily for 3 days, 1 tab daily for 3 days, 1/2 tab daily for 3 days PREDNISONE 76538890500 No Longer Active David Chew MD Active [facility] 28-0.8 MG TABS VIT-FE FUMARATE-FA 98607572390 Active David Chew MD Active FLAGYL 250 MG TABS 1 TAB PO BID FLAGYL 250 MG TABS 722706 METRONIDAZOLE Inactive AMOXICILLIN 500 MG CAPS 1 CAP PO TID AMOXICILLIN 500 MG CAPS 751028 AMOXICILLIN Inactive FLAGYL 500 MG TABS 1 tab BID for 7 days FLAGYL 500 MG TABS 826094 METRONIDAZOLE Inactive PREDNISONE 20 MG TAB 2 tabs daily for 3 days, 1 tab daily for 3 days, 1/2 tab daily for 2 days PREDNISONE 20 MG TAB 321395 PREDNISONE Inactive PREDNISONE 20 MG TAB 3 tabs daily for 3 days, 2 tabs daily for 3 days, 1 tab daily for 3 days, 1/2 tab daily for 3 days PREDNISONE 20 MG TAB 588712 PREDNISONE Inactive Immunizations Vaccine Administration Date Value Standard Description Adacel (Tetanus, reduced Diphtheria, and acellular Pertussis Immunization) Adacel [[id number]] tetanus toxoid, reduced diphtheria toxoid, and acellular [...] Measured Encounters Code Encounter Date Provider Facility CPT-09295 Level 3 Est. Patient 18:33:30 CDT David Chew MD [facility] CPT-68566 Level 3 Est. Patient 15:42:57 CDT David Chew MD [facility] CPT-65139 Level 3 Est. Patient 17:04:12 CDT Jaycob Delvalle MD [facility] CPT-88816 Level 3 Est. Patient 13:47:10 CDT David Chew MD [facility] Procedures Code Procedure Name Date Entry Date Standard Description CPT-01736 BHCG Quant - LAB USE ONLY 17:05:18 CDT CPT-90700 Venipuncture Draw Fee 17:05:18 CDT CPT-14925 BHCG Quant - LAB USE ONLY 15:51:05 CDT CPT-18747 Venipuncture Draw Fee 15:51:05 CDT CPT-44762 Wet Mount - LAB USE ONLY 17:14:30 CDT CPT-74110 Administration single or combination vaccine inc oral 12 :27:32 CDT CPT-38583 Tdap 12:27:32 CDT CPT-84894 Visit 12:15:18 CDT CPT-08342 Visit 11:22:43 CDT CPT-79000 Spec Collection and Handling Fee 14:34:15 CDT CPT-74109 Visit 14:34:15 CDT
--- OUTSIDE RECORDS SUMMARY | 2017-07-06 07:58 | XMS REPORT | Clinical Summary ---
Author Author Admin, ALEXA Organization [facility] Address Unknown Phone Unavailable Allergies, Adverse Reactions, [...] tablet by mouth three times daily METRONIDAZOLE 18015946624 Active David Chew MD Active TRAMADOL HCL 50 MG TABS 1 po q6hrs prn pain TRAMADOL HCL 68076927726 Active David Chew MD Active PREDNISONE 20 MG TAB 2 tabs daily for 3 days, 1 tab daily for 3 days, 1/2 tab daily for 2 days PREDNISONE 24092470844 No Longer Active Jaycob Delvalle MD Active FLAGYL 500 MG TABS 1 tab BID for 7 days METRONIDAZOLE 69290273345 No Longer Active David Chew MD Active AMOXICILLIN 500 MG CAPS 1 CAP PO TID AMOXICILLIN 70121851819 No Longer Active Katie Ghotra MD Active FLAGYL 250 MG TABS 1 TAB PO BID METRONIDAZOLE 34803459319 No Longer Active Katie Ghotra MD Active PREDNISONE 20 MG TAB 3 tabs daily for 3 days, 2 tabs daily for 3 days, 1 tab daily for 3 days, 1/2 tab daily for 3 days PREDNISONE 42052728668 No Longer Active David Chew MD Active [facility] 28-0.8 MG TABS VIT-FE FUMARATE-FA 96317874929 Active David Chew MD Active FLAGYL 250 MG TABS 1 TAB PO BID FLAGYL 250 MG TABS 788791 METRONIDAZOLE Inactive AMOXICILLIN 500 MG CAPS 1 CAP PO TID AMOXICILLIN 500 MG CAPS 880410 AMOXICILLIN Inactive FLAGYL 500 MG TABS 1 tab BID for 7 days FLAGYL 500 MG TABS 225377 METRONIDAZOLE Inactive PREDNISONE 20 MG TAB 2 tabs daily for 3 days, 1 tab daily for 3 days, 1/2 tab daily for 2 days PREDNISONE 20 MG TAB 722178 PREDNISONE Inactive PREDNISONE 20 MG TAB 3 tabs daily for 3 days, 2 tabs daily for 3 days, 1 tab daily for 3 days, 1/2 tab daily for 3 days PREDNISONE 20 MG TAB 715125 PREDNISONE Inactive Immunizations Vaccine Administration Date Value Standard Description Adacel (Tetanus, reduced Diphtheria, and acellular Pertussis Immunization) Adacel [[id number]] tetanus toxoid, reduced diphtheria toxoid, and acellular [...] Measured Encounters Code Encounter Date Provider Facility CPT-91245 Level 3 Est. Patient 18:33:30 CDT David Chew MD [facility] CPT-28455 Level 3 Est. Patient 15:42:57 CDT David Chew MD [facility] CPT-67923 Level 3 Est. Patient 17:04:12 CDT Jaycob Delvalle MD [facility] CPT-89642 Level 3 Est. Patient 13:47:10 CDT David Chew MD [facility] Procedures Code Procedure Name Date Entry Date Standard Description CPT-67492 BHCG Quant - LAB USE ONLY 15:51:05 CDT CPT-95913 Venipuncture Draw Fee 15:51:05 CDT CPT-08720 Wet Mount - LAB USE ONLY 17:14:30 CDT CPT-97537 Administration single or combination vaccine inc oral 12 :27:32 CDT CPT-00254 Tdap 12:27:32 CDT CPT-45129 Visit 12:15:18 CDT CPT-07088 Visit 11:22:43 CDT CPT-85375 Spec Collection and Handling Fee 14:34:15 CDT CPT-47254 Visit 14:34:15 CDT
--- OUTSIDE RECORDS SUMMARY | 2017-07-06 07:59 | XMS REPORT | Clinical Summary ---
Author Author Admin, ALEXA Organization [facility] Address Unknown Phone Unavailable Allergies, Adverse Reactions, [...] tablet by mouth three times daily METRONIDAZOLE 03230355297 Active David Chew MD Active TRAMADOL HCL 50 MG TABS 1 po q6hrs prn pain TRAMADOL HCL 10869486304 Active David Chew MD Active PREDNISONE 20 MG TAB 2 tabs daily for 3 days, 1 tab daily for 3 days, 1/2 tab daily for 2 days PREDNISONE 67400506427 No Longer Active Jaycob Delvalle MD Active FLAGYL 500 MG TABS 1 tab BID for 7 days METRONIDAZOLE 86836680266 No Longer Active David Chew MD Active AMOXICILLIN 500 MG CAPS 1 CAP PO TID AMOXICILLIN 66308893174 No Longer Active Katie Ghotra MD Active FLAGYL 250 MG TABS 1 TAB PO BID METRONIDAZOLE 30619893275 No Longer Active Katie Ghotra MD Active PREDNISONE 20 MG TAB 3 tabs daily for 3 days, 2 tabs daily for 3 days, 1 tab daily for 3 days, 1/2 tab daily for 3 days PREDNISONE 29795115880 No Longer Active David Chew MD Active [facility]S 28-0.8 MG TABS VIT-FE FUMARATE-FA 06249839102 Active David Chew MD Active FLAGYL 250 MG TABS 1 TAB PO BID FLAGYL 250 MG TABS 129457 METRONIDAZOLE Inactive AMOXICILLIN 500 MG CAPS 1 CAP PO TID AMOXICILLIN 500 MG CAPS 265848 AMOXICILLIN Inactive FLAGYL 500 MG TABS 1 tab BID for 7 days FLAGYL 500 MG TABS 509623 METRONIDAZOLE Inactive PREDNISONE 20 MG TAB 2 tabs daily for 3 days, 1 tab daily for 3 days, 1/2 tab daily for 2 days PREDNISONE 20 MG TAB 326698 PREDNISONE Inactive PREDNISONE 20 MG TAB 3 tabs daily for 3 days, 2 tabs daily for 3 days, 1 tab daily for 3 days, 1/2 tab daily for 3 days PREDNISONE 20 MG TAB 845307 PREDNISONE Inactive Immunizations Vaccine Administration Date Value Standard Description Adacel (Tetanus, reduced Diphtheria, and acellular Pertussis Immunization) Adacel [[id number]] tetanus toxoid, reduced diphtheria toxoid, and acellular [...] Measured Encounters Code Encounter Date Provider Facility CPT-09809 Level 3 Est. Patient 18:33:30 CDT David Chew MD [facility] CPT-35523 Level 3 Est. Patient 15:42:57 CDT David Chew MD [facility] CPT-14314 Level 3 Est. Patient 17:04:12 CDT Jaycob Delvalle MD [facility] CPT-00221 Level 3 Est. Patient 13:47:10 CDT David Chew MD [facility] Procedures Code Procedure Name Date Entry Date Standard Description CPT-88690 BHCG Quant - LAB USE ONLY 17:05:18 CDT CPT-54446 Venipuncture Draw Fee 17:05:18 CDT CPT-22980 BHCG Quant - LAB USE ONLY 15:51:05 CDT CPT-91498 Venipuncture Draw Fee 15:51:05 CDT CPT-60945 Wet Mount - LAB USE ONLY 17:14:30 CDT CPT-05055 Administration single or combination vaccine inc oral 12 :27:32 CDT CPT-66355 Tdap 12:27:32 CDT CPT-51709 Visit 12:15:18 CDT CPT-35862 Visit 11:22:43 CDT CPT-73395 Spec Collection and Handling Fee 14:34:15 CDT CPT-46858 Visit 14:34:15 CDT
--- OUTSIDE RECORDS SUMMARY | 2017-07-06 07:59 | XMS REPORT | Clinical Summary ---
Author Author Admin, ALEXA Organization [facility] Address Unknown Phone Unavailable Allergies, Adverse Reactions, [...] tablet by mouth three times daily METRONIDAZOLE 11099389778 Active David Chew MD Active TRAMADOL HCL 50 MG TABS 1 po q6hrs prn pain TRAMADOL HCL 78698802375 Active David Chew MD Active PREDNISONE 20 MG TAB 2 tabs daily for 3 days, 1 tab daily for 3 days, 1/2 tab daily for 2 days PREDNISONE 27437549085 No Longer Active Jaycob Delvalle MD Active FLAGYL 500 MG TABS 1 tab BID for 7 days METRONIDAZOLE 98096051372 No Longer Active David Chew MD Active AMOXICILLIN 500 MG CAPS 1 CAP PO TID AMOXICILLIN 54032344613 No Longer Active Katie Ghotra MD Active FLAGYL 250 MG TABS 1 TAB PO BID METRONIDAZOLE 78310497253 No Longer Active Katie Ghotra MD Active PREDNISONE 20 MG TAB 3 tabs daily for 3 days, 2 tabs daily for 3 days, 1 tab daily for 3 days, 1/2 tab daily for 3 days PREDNISONE 12637554095 No Longer Active David Chew MD Active [facility] 28-0.8 MG TABS VIT-FE FUMARATE-FA 34147760153 Active David Chew MD Active FLAGYL 250 MG TABS 1 TAB PO BID FLAGYL 250 MG TABS 857832 METRONIDAZOLE Inactive AMOXICILLIN 500 MG CAPS 1 CAP PO TID AMOXICILLIN 500 MG CAPS 046162 AMOXICILLIN Inactive FLAGYL 500 MG TABS 1 tab BID for 7 days FLAGYL 500 MG TABS 893537 METRONIDAZOLE Inactive PREDNISONE 20 MG TAB 2 tabs daily for 3 days, 1 tab daily for 3 days, 1/2 tab daily for 2 days PREDNISONE 20 MG TAB 342028 PREDNISONE Inactive PREDNISONE 20 MG TAB 3 tabs daily for 3 days, 2 tabs daily for 3 days, 1 tab daily for 3 days, 1/2 tab daily for 3 days PREDNISONE 20 MG TAB 060088 PREDNISONE Inactive Immunizations Vaccine Administration Date Value Standard Description Adacel (Tetanus, reduced Diphtheria, and acellular Pertussis Immunization) Adacel [[id number]] tetanus toxoid, reduced diphtheria toxoid, and acellular [...] Measured Encounters Code Encounter Date Provider Facility CPT-98230 Level 3 Est. Patient 15:42:57 CDT David Chew MD [facility] CPT-53541 Level 3 Est. Patient 17:04:12 CDT Jaycob Delvalle MD [facility] CPT-50074 Level 3 Est. Patient 13:47:10 CDT David Chew MD [facility] Procedures Code Procedure Name Date Entry Date Standard Description CPT-20479 BHCG Quant - LAB USE ONLY 15:51:05 CDT CPT-67672 Venipuncture Draw Fee 15:51:05 CDT CPT-13289 Wet Mount - LAB USE ONLY 17:14:30 CDT CPT-24387 Administration single or combination vaccine inc oral 12 :27:32 CDT CPT-57553 Tdap 12:27:32 CDT CPT-50410 Visit 12:15:18 CDT CPT-86190 Visit 11:22:43 CDT CPT-10437 Spec Collection and Handling Fee 14:34:15 CDT CPT-46788 Visit 14:34:15 CDT
--- OUTSIDE RECORDS SUMMARY | 2017-07-06 07:59 | XMS REPORT ---
Author Author [facility] Medical Staff Organization [facility] Address [address] [place], [place] [address] Phone [phone] Care Team Providers Care Technical Supervisor Name Role Phone MT CHEW MD PP [phone] Summary purpose TRANSITION OF CARE AUTO GENERATION [...] tests and/or laboratory data RESULTS Routine Urinalysis 55-15-342443:00:00 Result Normal Range Units Color YELLOW Clarity Clear Specific Stanton 1.020 1.003-1.035 pH 5.5 4.5-8.0 Glucose NEGATIVE Bilirubin NEGATIVE Ketones NEGATIVE Protein NEGATIVE Urobilinogen 0.2 0-0.2 E.U./dL Nitrites NEGATIVE Blood NEGATIVE Leukocytes NEGATIVE WBCs 5-10 RBCs 10-20 Squamous Epithelial 3+ Bacteria 1+ Mucous 1+ Yeast Rare Amount Chemistry 19-05-931631:30:00 Result Normal Range Units Sodium 139 134-145 [...] 10-20 Estimated GFR 118 >=60 mL/min/1.7 Hematology 05-62-474542:30:00 Result Normal Range Units WBC 6.4 4.8-10.8 103/uL RBC 4.5 4.2-5.4 106/uL HGB 13.6 12.0-16.0 g/dl HCT 41.3 36.9-47.0 % MCV 91.4 81-99 FL MCH 30.1 27-31 pg MCHC L 32.9 33-37 g/dl RDW 12.4 11.5-15.5 % PLT 318 130-400 103/uL MPV 9.0 7.3-10.4 FL Neutro % 43.8 40-70 % Lymph % H 41.7 20-40 % Glades % 9.3 0-10.0 % Eos % 4.2 0-7.0 % Baso % 0.8 0-2 % Neutro # 2.8 1.5-7.5 103/uL Lymph # 2.7 0.9-4.0 103/uL Glades # 0.6 0-0.8 103/uL Eos # 0.3 0-0.6 103/uL Baso # 0.1 0-0.1 103/uL Body Fluid 63-54-744807:00:00 Result Normal Range Units pH 5.5 4.5-8.0 Radiology Results 75-45-957391:43:00 Abdomen 2 View PACs Image DATE OF [...] abnormal finding within the patient. MD ROBERTO Estrada/in08/27/2015 09:40:00 / 08/27/2015 09:49:30 cc:Dr. Mt Chew [...] abnormal finding within the patient. MD ROBERTO Estrada/in08/27/2015 09:40:00 / 08/27/2015 09:49:30 cc:Dr. Mt Chew This document has been electronically Signed by: GRAY XIONG MD On: 20141:43P Result Amended on 2015-08-27 at 13:44:00. Previous status was HI. :30:00 Result Normal Range Units MPV 9.0 7.3-10.4 FL History of procedures No procedures recorded for this patient visit. Functional status Functional Status Finding Observation Time Abdomen Appearance flat 43-24-838739:05 Abdomen soft 56-61-084877:05 Bowel Sounds present 26-96-450886:05 Urination normal 31-22-514020:05 Quality sym/unlabored 82-06-481997:05 Cough absent 06-47-849162:05 Secretions no 55-66-543811:05 Breath Sounds RUL clear 40-78-477932:05 Breath Sounds RML clear 97-07-268400:05 Breath Sounds RLL clear 17-47-877040:05 Breath Sounds LIA clear 87-08-049759:05 Breath Sounds LLL clear :05 Airway natural :05 Chest Tube no :05 Oxygen no :50 Temp >100.4 no :50 Temp <96.8 no :50 Chills with rigors no :50 HR > 90bpm no :50 Respirations > 20 no :50 Systolic <90 no :50 headache stiff neck no :50 WBC > 47983 no :50 WBC < 4000 no :50 Rapid Resp no :05 IV Site Location L hand :25 IV Type peripheral :50 IV Site Information discontinued :50 IV Site Start Attmpt 1 times Comment: started by James KAUR student 66-41-226341:25 IV Site Dayron 20 18-36-843383:25 IV Site Appearance WNL 20-55-252875:25 IV Site Color clear : IV Site Patent yes :25 Dressing Type occlusive :25 Nursing Note pt dismissed to home with rx for zofran and note for PO, verbalized understanding of all instructions, out ambulatory in good condition 08-27-2015 09:50 Vital signs Type Value Date Respiration Rate 18breaths per minute :50 Pulse 89beats per minute :50 Oxygen Saturation 99% :50 BP Systolic 107mmHg :50 BP Diastolic 66mmHg 84-44-758184:50 Temperature 98.6F 79-68-596074:50 Social history Type Value Smoking Status CURRENT EVERY DAY SMOKER Treatment Plan No treatment plan text is available for this visit. Hospital discharge instructions Dismissal Condition good Disposition on DC home DC Inst/Educ Give yes Med/Side Effects Rev yes Flu Vac No
--- OUTSIDE RECORDS SUMMARY | 2017-07-06 08:00 | XMS REPORT | Clinical Summary ---
Author Author Admin, ALEXA Organization [facility] Address Unknown Phone Unavailable Allergies, Adverse [...] tablet by mouth three times daily METRONIDAZOLE 43719972014 Active David Chew MD Active TRAMADOL HCL 50 MG TABS 1 po q6hrs prn pain TRAMADOL HCL 00898302844 Active David Chew MD Active PREDNISONE 20 MG TAB 2 tabs daily for 3 days, 1 tab daily for 3 days, 1/2 tab daily for 2 days PREDNISONE 64147634364 No Longer Active Jaycob Delvalle MD Active FLAGYL 500 MG TABS 1 tab BID for 7 days METRONIDAZOLE 03268879957 No Longer Active David Chew MD Active AMOXICILLIN 500 MG CAPS 1 CAP PO TID AMOXICILLIN 78905604949 No Longer Active Katie Ghotra MD Active FLAGYL 250 MG TABS 1 TAB PO BID METRONIDAZOLE 13660994494 No Longer Active Katie Ghotra MD Active PREDNISONE 20 MG TAB 3 tabs daily for 3 days, 2 tabs daily for 3 days, 1 tab daily for 3 days, 1/2 tab daily for 3 days PREDNISONE 49581549612 No Longer Active David Chew MD Active [facility]S 28-0.8 MG TABS VIT-FE FUMARATE-FA 77471621365 Active Dvaid Chew MD Active FLAGYL 250 MG TABS 1 TAB PO BID FLAGYL 250 MG TABS 309500 METRONIDAZOLE Inactive AMOXICILLIN 500 MG CAPS 1 CAP PO TID AMOXICILLIN 500 MG CAPS 067901 AMOXICILLIN Inactive FLAGYL 500 MG TABS 1 tab BID for 7 days FLAGYL 500 MG TABS 626952 METRONIDAZOLE Inactive PREDNISONE 20 MG TAB 2 tabs daily for 3 days, 1 tab daily for 3 days, 1/2 tab daily for 2 days PREDNISONE 20 MG TAB 330491 PREDNISONE Inactive PREDNISONE 20 MG TAB 3 tabs daily for 3 days, 2 tabs daily for 3 days, 1 tab daily for 3 days, 1/2 tab daily for 3 days PREDNISONE 20 MG TAB 194956 PREDNISONE Inactive Immunizations Vaccine Administration Date Value Standard Description Adacel (Tetanus, reduced Diphtheria, and acellular Pertussis Immunization) Adacel [[id number]] tetanus toxoid, reduced diphtheria toxoid, and acellular [...] Measured Encounters Code Encounter Date Provider Facility CPT-97736 Level 3 Est. Patient 18:33:30 CDT David Chew MD [facility] CPT-82252 Level 3 Est. Patient 15:42:57 CDT David Chew MD [facility] CPT-10116 Level 3 Est. Patient 17:04:12 CDT Jaycob Delvalle MD [facility] CPT-11130 Level 3 Est. Patient 13:47:10 CDT David Chew MD [facility] Procedures Code Procedure Name Date Entry Date Standard Description CPT-14064 BHCG Quant - LAB USE ONLY 17:05:18 CDT CPT-54419 Venipuncture Draw Fee 17:05:18 CDT CPT-48600 BHCG Quant - LAB USE ONLY 15:51:05 CDT CPT-12571 Venipuncture Draw Fee 15:51:05 CDT CPT-64837 Wet Mount - LAB USE ONLY 17:14:30 CDT CPT-96193 Administration single or combination vaccine inc oral 12 :27:32 CDT CPT-27756 Tdap 12:27:32 CDT CPT-92267 Visit 12:15:18 CDT CPT-70594 Visit 11:22:43 CDT CPT-32676 Spec Collection and Handling Fee 14:34:15 CDT CPT-93163 Visit 14:34:15 CDT
--- OUTSIDE RECORDS SUMMARY | 2017-07-06 08:00 | XMS REPORT | Clinical Summary ---
Author Author Admin, ALEXA Organization [facility] Address Unknown Phone Unavailable Allergies, Adverse Reactions, [...] tablet by mouth three times daily METRONIDAZOLE 84010419738 Active David Chew MD Active TRAMADOL HCL 50 MG TABS 1 po q6hrs prn pain TRAMADOL HCL 91006807810 Active David Chew MD Active PREDNISONE 20 MG TAB 2 tabs daily for 3 days, 1 tab daily for 3 days, 1/2 tab daily for 2 days PREDNISONE 96132261944 No Longer Active Jaycob Delvalle MD Active FLAGYL 500 MG TABS 1 tab BID for 7 days METRONIDAZOLE 13969600191 No Longer Active David Chew MD Active AMOXICILLIN 500 MG CAPS 1 CAP PO TID AMOXICILLIN 59201908266 No Longer Active Katie Ghotra MD Active FLAGYL 250 MG TABS 1 TAB PO BID METRONIDAZOLE 85070201122 No Longer Active Katie Ghotra MD Active PREDNISONE 20 MG TAB 3 tabs daily for 3 days, 2 tabs daily for 3 days, 1 tab daily for 3 days, 1/2 tab daily for 3 days PREDNISONE 10744285863 No Longer Active David Chew MD Active [facility] 28-0.8 MG TABS VIT-FE FUMARATE-FA 01768368483 Active David Chew MD Active FLAGYL 250 MG TABS 1 TAB PO BID FLAGYL 250 MG TABS 835940 METRONIDAZOLE Inactive AMOXICILLIN 500 MG CAPS 1 CAP PO TID AMOXICILLIN 500 MG CAPS 129570 AMOXICILLIN Inactive FLAGYL 500 MG TABS 1 tab BID for 7 days FLAGYL 500 MG TABS 958072 METRONIDAZOLE Inactive PREDNISONE 20 MG TAB 2 tabs daily for 3 days, 1 tab daily for 3 days, 1/2 tab daily for 2 days PREDNISONE 20 MG TAB 719592 PREDNISONE Inactive PREDNISONE 20 MG TAB 3 tabs daily for 3 days, 2 tabs daily for 3 days, 1 tab daily for 3 days, 1/2 tab daily for 3 days PREDNISONE 20 MG TAB 454999 PREDNISONE Inactive Immunizations Vaccine Administration Date Value Standard Description Adacel (Tetanus, reduced Diphtheria, and acellular Pertussis Immunization) Adacel [QKK226] tetanus toxoid, reduced diphtheria toxoid, and acellular [...] Measured Encounters Code Encounter Date Provider Facility CPT-24170 Level 3 Est. Patient 18:33:30 CDT David Chew MD [facility] CPT-30753 Level 3 Est. Patient 15:42:57 CDT David Chew MD [facility] CPT-82441 Level 3 Est. Patient 17:04:12 CDT Jaycob Delvalle MD [facility] CPT-74277 Level 3 Est. Patient 13:47:10 CDT David Chew MD [facility] Procedures Code Procedure Name Date Entry Date Standard Description CPT-91890 BHCG Quant - LAB USE ONLY 17:05:18 CDT CPT-38417 Venipuncture Draw Fee 17:05:18 CDT CPT-20201 BHCG Quant - LAB USE ONLY 15:51:05 CDT CPT-85306 Venipuncture Draw Fee 15:51:05 CDT CPT-75249 Wet Mount - LAB USE ONLY 17:14:30 CDT CPT-78540 Administration single or combination vaccine inc oral 12 :27:32 CDT CPT-68705 Tdap 12:27:32 CDT CPT-48908 Visit 12:15:18 CDT CPT-95994 Visit 11:22:43 CDT CPT-79142 Spec Collection and Handling Fee 14:34:15 CDT CPT-20648 Visit 14:34:15 CDT
--- OUTSIDE RECORDS SUMMARY | 2017-07-06 08:00 | XMS REPORT | Clinical Summary ---
Author Author Admin, ALEXA Organization [facility] Address Unknown Phone Unavailable Allergies, [...] 1/2 tab daily for 2 days PREDNISONE 19676064606 No Longer Active Jaycob Delvalle MD Active FLAGYL 500 MG TABS 1 tab BID for 7 days METRONIDAZOLE 73852481011 No Longer Active David Chew MD Active AMOXICILLIN 500 MG CAPS 1 CAP PO TID AMOXICILLIN 00933852367 No Longer Active Katie Ghotra MD Active FLAGYL 250 MG TABS 1 TAB PO BID METRONIDAZOLE 84142688444 No Longer Active Katie Ghotra MD Active PREDNISONE 20 MG TAB 3 tabs daily for 3 days, 2 tabs daily for 3 days, 1 tab daily for 3 days, 1/2 tab daily for 3 days PREDNISONE 73345491522 No Longer Active David Chew MD Active [facility] 28-0.8 MG TABS VIT-FE FUMARATE-FA 34476593393 Active David Chew MD Active FLAGYL 250 MG TABS 1 TAB PO BID FLAGYL 250 MG TABS 994220 METRONIDAZOLE Inactive AMOXICILLIN 500 MG CAPS 1 CAP PO TID AMOXICILLIN 500 MG CAPS 057085 AMOXICILLIN Inactive FLAGYL 500 MG TABS 1 tab BID for 7 days FLAGYL 500 MG TABS 715754 METRONIDAZOLE Inactive PREDNISONE 20 MG TAB 2 tabs daily for 3 days, 1 tab daily for 3 days, 1/2 tab daily for 2 days PREDNISONE 20 MG TAB 169204 PREDNISONE Inactive PREDNISONE 20 MG TAB 3 tabs daily for 3 days, 2 tabs daily for 3 days, 1 tab daily for 3 days, 1/2 tab daily for 3 days PREDNISONE 20 MG TAB 710268 PREDNISONE Inactive Immunizations Vaccine Administration Date Value Standard Description Adacel (Tetanus, reduced Diphtheria, and acellular Pertussis Immunization) Adacel [[id number]] tetanus toxoid, reduced diphtheria toxoid, and acellular [...] Measured Encounters Code Encounter Date Provider Facility CPT-97399 Level 3 Est. Patient 17:04:12 CDT Jaycob Delvalle MD [facility] CPT-79153 Level 3 Est. Patient 13:47:10 CDT David Chew MD [facility] Procedures Code Procedure Name Date Entry Date Standard Description CPT-18029 Wet Mount - LAB USE ONLY 17:14:30 CDT CPT-23595 Administration single or combination vaccine inc oral 12 :27:32 CDT CPT-42436 Tdap 12:27:32 CDT CPT-53874 Visit 12:15:18 CDT CPT-65641 Visit 11:22:43 CDT CPT-99673 Spec Collection and Handling Fee 14:34:15 CDT CPT-74970 Visit 14:34:15 CDT
--- OUTSIDE RECORDS SUMMARY | 2017-07-06 08:00 | XMS REPORT | Clinical Summary ---
Author Author Admin, ALEXA Organization [employer] [facility] Address Unknown Phone Unavailable Allergies, Adverse [...] tablet by mouth three times daily METRONIDAZOLE 68815274491 Active David Chew MD Active TRAMADOL HCL 50 MG TABS 1 po q6hrs prn pain TRAMADOL HCL 39062541169 Active David Chew MD Active PREDNISONE 20 MG TAB 2 tabs daily for 3 days, 1 tab daily for 3 days, 1/2 tab daily for 2 days PREDNISONE 89408800283 No Longer Active Jaycob Delvalle MD Active FLAGYL 500 MG TABS 1 tab BID for 7 days METRONIDAZOLE 45465038396 No Longer Active David Chew MD Active AMOXICILLIN 500 MG CAPS 1 CAP PO TID AMOXICILLIN 64631169314 No Longer Active Katie Ghotra MD Active FLAGYL 250 MG TABS 1 TAB PO BID METRONIDAZOLE 57219329507 No Longer Active Katie Ghotra MD Active PREDNISONE 20 MG TAB 3 tabs daily for 3 days, 2 tabs daily for 3 days, 1 tab daily for 3 days, 1/2 tab daily for 3 days PREDNISONE 74050503234 No Longer Active David Chew MD Active [facility] 28-0.8 MG TABS VIT-FE FUMARATE-FA 07205606344 Active David Chew MD Active FLAGYL 250 MG TABS 1 TAB PO BID FLAGYL 250 MG TABS 084208 METRONIDAZOLE Inactive AMOXICILLIN 500 MG CAPS 1 CAP PO TID AMOXICILLIN 500 MG CAPS 005796 AMOXICILLIN Inactive FLAGYL 500 MG TABS 1 tab BID for 7 days FLAGYL 500 MG TABS 681817 METRONIDAZOLE Inactive PREDNISONE 20 MG TAB 2 tabs daily for 3 days, 1 tab daily for 3 days, 1/2 tab daily for 2 days PREDNISONE 20 MG TAB 148343 PREDNISONE Inactive PREDNISONE 20 MG TAB 3 tabs daily for 3 days, 2 tabs daily for 3 days, 1 tab daily for 3 days, 1/2 tab daily for 3 days PREDNISONE 20 MG TAB 384917 PREDNISONE Inactive Immunizations Vaccine Administration Date Value Standard Description Adacel (Tetanus, reduced Diphtheria, and acellular Pertussis Immunization) Adacel [[id number]] tetanus toxoid, reduced diphtheria toxoid, and acellular [...] Measured Encounters Code Encounter Date Provider Facility CPT-08910 Level 3 Est. Patient 18:33:30 CDT David Chew MD [facility] CPT-34827 Level 3 Est. Patient 15:42:57 CDT David Chew MD [facility] CPT-52355 Level 3 Est. Patient 17:04:12 CDT Jaycob Delvalle MD [facility] CPT-32309 Level 3 Est. Patient 13:47:10 CDT David Chew MD [facility] Procedures Code Procedure Name Date Entry Date Standard Description CPT-57874 BHCG Quant - LAB USE ONLY 17:05:18 CDT CPT-78332 Venipuncture Draw Fee 17:05:18 CDT CPT-11131 BHCG Quant - LAB USE ONLY 15:51:05 CDT CPT-84866 Venipuncture Draw Fee 15:51:05 CDT CPT-00923 Wet Mount - LAB USE ONLY 17:14:30 CDT CPT-13426 Administration single or combination vaccine inc oral 12 :27:32 CDT CPT-69142 Tdap 12:27:32 CDT CPT-44731 Visit 12:15:18 CDT CPT-54317 Visit 11:22:43 CDT CPT-54912 Spec Collection and Handling Fee 14:34:15 CDT CPT-98888 Visit 14:34:15 CDT
--- OUTSIDE RECORDS SUMMARY | 2017-07-06 08:00 | XMS REPORT | Clinical Summary ---
Author Author Admin, ALEXA Organization [employer] [facility] Address Unknown Phone [...] tablet by mouth three times daily METRONIDAZOLE 30961732399 Active David Chew MD Active TRAMADOL HCL 50 MG TABS 1 po q6hrs prn pain TRAMADOL HCL 38714738481 Active David Chew MD Active PREDNISONE 20 MG TAB 2 tabs daily for 3 days, 1 tab daily for 3 days, 1/2 tab daily for 2 days PREDNISONE 14123877406 No Longer Active Jaycob Delvalle MD Active FLAGYL 500 MG TABS 1 tab BID for 7 days METRONIDAZOLE 28799324984 No Longer Active David Chew MD Active AMOXICILLIN 500 MG CAPS 1 CAP PO TID AMOXICILLIN 36929257957 No Longer Active Katie Ghotra MD Active FLAGYL 250 MG TABS 1 TAB PO BID METRONIDAZOLE 25138660216 No Longer Active Katie Ghotra MD Active PREDNISONE 20 MG TAB 3 tabs daily for 3 days, 2 tabs daily for 3 days, 1 tab daily for 3 days, 1/2 tab daily for 3 days PREDNISONE 03526913645 No Longer Active David Chew MD Active [facility] 28-0.8 MG TABS VIT-FE FUMARATE-FA 73884682688 Active David Chew MD Active FLAGYL 250 MG TABS 1 TAB PO BID FLAGYL 250 MG TABS 590836 METRONIDAZOLE Inactive AMOXICILLIN 500 MG CAPS 1 CAP PO TID AMOXICILLIN 500 MG CAPS 984529 AMOXICILLIN Inactive FLAGYL 500 MG TABS 1 tab BID for 7 days FLAGYL 500 MG TABS 551313 METRONIDAZOLE Inactive PREDNISONE 20 MG TAB 2 tabs daily for 3 days, 1 tab daily for 3 days, 1/2 tab daily for 2 days PREDNISONE 20 MG TAB 367063 PREDNISONE Inactive PREDNISONE 20 MG TAB 3 tabs daily for 3 days, 2 tabs daily for 3 days, 1 tab daily for 3 days, 1/2 tab daily for 3 days PREDNISONE 20 MG TAB 865986 PREDNISONE Inactive Immunizations Vaccine Administration Date Value Standard Description Adacel (Tetanus, reduced Diphtheria, and acellular Pertussis Immunization) Adacel [[id number]] tetanus toxoid, reduced diphtheria toxoid, and acellular [...] Measured Encounters Code Encounter Date Provider Facility CPT-49467 Level 3 Est. Patient 18:33:30 CDT David Chew MD [facility] CPT-13498 Level 3 Est. Patient 15:42:57 CDT David Chew MD [facility] CPT-67531 Level 3 Est. Patient 17:04:12 CDT Jaycob Delvalle MD [facility] CPT-16190 Level 3 Est. Patient 13:47:10 CDT David Chew MD [facility] Procedures Code Procedure Name Date Entry Date Standard Description CPT-01431 BHCG Quant - LAB USE ONLY 17:05:18 CDT CPT-66606 Venipuncture Draw Fee 17:05:18 CDT CPT-66597 BHCG Quant - LAB USE ONLY 15:51:05 CDT CPT-10609 Venipuncture Draw Fee 15:51:05 CDT CPT-82605 Wet Mount - LAB USE ONLY 17:14:30 CDT CPT-61681 Administration single or combination vaccine inc oral 12 :27:32 CDT CPT-34264 Tdap 12:27:32 CDT CPT-78124 Visit 12:15:18 CDT CPT-50442 Visit 11:22:43 CDT CPT-43231 Spec Collection and Handling Fee 14:34:15 CDT CPT-44226 Visit 14:34:15 CDT
--- OUTSIDE RECORDS SUMMARY | 2017-07-06 08:01 | XMS REPORT | Clinical Summary ---
Author Author Admin, ALEXA Organization [employer] [facility] Address Unknown Phone Unavailable Allergies, Adverse Reactions, [...] tablet by mouth three times daily METRONIDAZOLE 62122417149 Active David Chew MD Active TRAMADOL HCL 50 MG TABS 1 po q6hrs prn pain TRAMADOL HCL 12404677322 Active David Chew MD Active PREDNISONE 20 MG TAB 2 tabs daily for 3 days, 1 tab daily for 3 days, 1/2 tab daily for 2 days PREDNISONE 22422606666 No Longer Active Jaycob Delvalle MD Active FLAGYL 500 MG TABS 1 tab BID for 7 days METRONIDAZOLE 72454132021 No Longer Active David Chew MD Active AMOXICILLIN 500 MG CAPS 1 CAP PO TID AMOXICILLIN 49773992476 No Longer Active Katie Ghotra MD Active FLAGYL 250 MG TABS 1 TAB PO BID METRONIDAZOLE 76554265910 No Longer Active Katie Ghotra MD Active PREDNISONE 20 MG TAB 3 tabs daily for 3 days, 2 tabs daily for 3 days, 1 tab daily for 3 days, 1/2 tab daily for 3 days PREDNISONE 87888726088 No Longer Active David Chew MD Active [facility] 28-0.8 MG TABS VIT-FE FUMARATE-FA 85755634377 Active David Chew MD Active FLAGYL 250 MG TABS 1 TAB PO BID FLAGYL 250 MG TABS 064604 METRONIDAZOLE Inactive AMOXICILLIN 500 MG CAPS 1 CAP PO TID AMOXICILLIN 500 MG CAPS 933307 AMOXICILLIN Inactive FLAGYL 500 MG TABS 1 tab BID for 7 days FLAGYL 500 MG TABS 738230 METRONIDAZOLE Inactive PREDNISONE 20 MG TAB 2 tabs daily for 3 days, 1 tab daily for 3 days, 1/2 tab daily for 2 days PREDNISONE 20 MG TAB 434439 PREDNISONE Inactive PREDNISONE 20 MG TAB 3 tabs daily for 3 days, 2 tabs daily for 3 days, 1 tab daily for 3 days, 1/2 tab daily for 3 days PREDNISONE 20 MG TAB 613121 PREDNISONE Inactive Immunizations Vaccine Administration Date Value Standard Description Adacel (Tetanus, reduced Diphtheria, and acellular Pertussis Immunization) Adacel [[id number]] tetanus toxoid, reduced diphtheria toxoid, and acellular [...] Measured Encounters Code Encounter Date Provider Facility CPT-29309 Level 3 Est. Patient 18:33:30 CDT David Chew MD [facility] CPT-30240 Level 3 Est. Patient 15:42:57 CDT David Chew MD [facility] CPT-80332 Level 3 Est. Patient 17:04:12 CDT Jaycob Delvalle MD [facility] CPT-23564 Level 3 Est. Patient 13:47:10 CDT David Chew MD [facility] Procedures Code Procedure Name Date Entry Date Standard Description CPT-54405 BHCG Quant - LAB USE ONLY 17:05:18 CDT CPT-69792 Venipuncture Draw Fee 17:05:18 CDT CPT-18602 BHCG Quant - LAB USE ONLY 15:51:05 CDT CPT-63496 Venipuncture Draw Fee 15:51:05 CDT CPT-58859 Wet Mount - LAB USE ONLY 17:14:30 CDT CPT-57931 Administration single or combination vaccine inc oral 12 :27:32 CDT CPT-25284 Tdap 12:27:32 CDT CPT-10383 Visit 12:15:18 CDT CPT-12567 Visit 11:22:43 CDT CPT-40587 Spec Collection and Handling Fee 14:34:15 CDT CPT-59635 Visit 14:34:15 CDT
--- OUTSIDE RECORDS SUMMARY | 2017-07-06 08:01 | XMS REPORT | Clinical Summary ---
Author Author Admin, ALEXA Organization [employer] [facility] Address Unknown Phone Unavailable Allergies, Adverse [...] tablet by mouth three times daily METRONIDAZOLE 59118890639 Active David Chew MD Active TRAMADOL HCL 50 MG TABS 1 po q6hrs prn pain TRAMADOL HCL 86080372040 Active David Chew MD Active PREDNISONE 20 MG TAB 2 tabs daily for 3 days, 1 tab daily for 3 days, 1/2 tab daily for 2 days PREDNISONE 11258661446 No Longer Active Jaycob Delvalle MD Active FLAGYL 500 MG TABS 1 tab BID for 7 days METRONIDAZOLE 66181715935 No Longer Active David Chew MD Active AMOXICILLIN 500 MG CAPS 1 CAP PO TID AMOXICILLIN 12147354245 No Longer Active Katie Ghotra MD Active FLAGYL 250 MG TABS 1 TAB PO BID METRONIDAZOLE 68930755668 No Longer Active Katie Ghotra MD Active PREDNISONE 20 MG TAB 3 tabs daily for 3 days, 2 tabs daily for 3 days, 1 tab daily for 3 days, 1/2 tab daily for 3 days PREDNISONE 64238778569 No Longer Active David Chew MD Active [facility] 28-0.8 MG TABS VIT-FE FUMARATE-FA 52399014433 Active David Chew MD Active FLAGYL 250 MG TABS 1 TAB PO BID FLAGYL 250 MG TABS 750225 METRONIDAZOLE Inactive AMOXICILLIN 500 MG CAPS 1 CAP PO TID AMOXICILLIN 500 MG CAPS 337868 AMOXICILLIN Inactive FLAGYL 500 MG TABS 1 tab BID for 7 days FLAGYL 500 MG TABS 790162 METRONIDAZOLE Inactive PREDNISONE 20 MG TAB 2 tabs daily for 3 days, 1 tab daily for 3 days, 1/2 tab daily for 2 days PREDNISONE 20 MG TAB 126048 PREDNISONE Inactive PREDNISONE 20 MG TAB 3 tabs daily for 3 days, 2 tabs daily for 3 days, 1 tab daily for 3 days, 1/2 tab daily for 3 days PREDNISONE 20 MG TAB 427561 PREDNISONE Inactive Immunizations Vaccine Administration Date Value Standard Description Adacel (Tetanus, reduced Diphtheria, and acellular Pertussis Immunization) Adacel [[id number]] tetanus toxoid, reduced diphtheria toxoid, and acellular [...] Measured Encounters Code Encounter Date Provider Facility CPT-60797 Level 3 Est. Patient 18:33:30 CDT David Chew MD [facility] CPT-15644 Level 3 Est. Patient 15:42:57 CDT David Chew MD [facility] CPT-10435 Level 3 Est. Patient 17:04:12 CDT Jaycob Delvalle MD [facility] CPT-84495 Level 3 Est. Patient 13:47:10 CDT David Chew MD [facility] Procedures Code Procedure Name Date Entry Date Standard Description CPT-52538 BHCG Quant - LAB USE ONLY 15:51:05 CDT CPT-43930 Venipuncture Draw Fee 15:51:05 CDT CPT-47956 Wet Mount - LAB USE ONLY 17:14:30 CDT CPT-90790 Administration single or combination vaccine inc oral 12 :27:32 CDT CPT-22767 Tdap 12:27:32 CDT CPT-56914 Visit 12:15:18 CDT CPT-79289 Visit 11:22:43 CDT CPT-28547 Spec Collection and Handling Fee 14:34:15 CDT CPT-46872 Visit 14:34:15 CDT
--- OUTSIDE RECORDS SUMMARY | 2017-07-06 08:01 | XMS REPORT | Clinical Summary ---
Author Author Admin, ALEXA Organization [employer] [facility] Address Unknown Phone Unavailable Allergies, Adverse Reactions, [...] tablet by mouth three times daily METRONIDAZOLE 78183727494 Active David Chew MD Active TRAMADOL HCL 50 MG TABS 1 po q6hrs prn pain TRAMADOL HCL 95007267810 Active David Chew MD Active PREDNISONE 20 MG TAB 2 tabs daily for 3 days, 1 tab daily for 3 days, 1/2 tab daily for 2 days PREDNISONE 68485577878 No Longer Active Jaycob Delvalle MD Active FLAGYL 500 MG TABS 1 tab BID for 7 days METRONIDAZOLE 39477557111 No Longer Active David Chew MD Active AMOXICILLIN 500 MG CAPS 1 CAP PO TID AMOXICILLIN 08830977457 No Longer Active Katie Ghotra MD Active FLAGYL 250 MG TABS 1 TAB PO BID METRONIDAZOLE 40381942431 No Longer Active Katie Ghotra MD Active PREDNISONE 20 MG TAB 3 tabs daily for 3 days, 2 tabs daily for 3 days, 1 tab daily for 3 days, 1/2 tab daily for 3 days PREDNISONE 80406336327 No Longer Active David Chew MD Active [facility] 28-0.8 MG TABS VIT-FE FUMARATE-FA 04337376973 Active David Chew MD Active FLAGYL 250 MG TABS 1 TAB PO BID FLAGYL 250 MG TABS 833487 METRONIDAZOLE Inactive AMOXICILLIN 500 MG CAPS 1 CAP PO TID AMOXICILLIN 500 MG CAPS 227264 AMOXICILLIN Inactive FLAGYL 500 MG TABS 1 tab BID for 7 days FLAGYL 500 MG TABS 517370 METRONIDAZOLE Inactive PREDNISONE 20 MG TAB 2 tabs daily for 3 days, 1 tab daily for 3 days, 1/2 tab daily for 2 days PREDNISONE 20 MG TAB 142087 PREDNISONE Inactive PREDNISONE 20 MG TAB 3 tabs daily for 3 days, 2 tabs daily for 3 days, 1 tab daily for 3 days, 1/2 tab daily for 3 days PREDNISONE 20 MG TAB 536035 PREDNISONE Inactive Immunizations Vaccine Administration Date Value Standard Description Adacel (Tetanus, reduced Diphtheria, and acellular Pertussis Immunization) Adacel [[id number]] tetanus toxoid, reduced diphtheria toxoid, and acellular [...] Measured Encounters Code Encounter Date Provider Facility CPT-74794 Level 3 Est. Patient 18:33:30 CDT David Chew MD [facility] CPT-15550 Level 3 Est. Patient 15:42:57 CDT David Chew MD [facility] CPT-92924 Level 3 Est. Patient 17:04:12 CDT Jaycob Delvalle MD [facility] CPT-52902 Level 3 Est. Patient 13:47:10 CDT David Chew MD [facility] Procedures Code Procedure Name Date Entry Date Standard Description CPT-07699 BHCG Quant - LAB USE ONLY 17:05:18 CDT CPT-64910 Venipuncture Draw Fee 17:05:18 CDT CPT-76075 BHCG Quant - LAB USE ONLY 15:51:05 CDT CPT-55139 Venipuncture Draw Fee 15:51:05 CDT CPT-24363 Wet Mount - LAB USE ONLY 17:14:30 CDT CPT-44474 Administration single or combination vaccine inc oral 12 :27:32 CDT CPT-90814 Tdap 12:27:32 CDT CPT-35916 Visit 12:15:18 CDT CPT-55808 Visit 11:22:43 CDT CPT-53655 Spec Collection and Handling Fee 14:34:15 CDT CPT-55501 Visit 14:34:15 CDT
--- OUTSIDE RECORDS SUMMARY | 2017-07-06 08:01 | XMS REPORT | Clinical Summary ---
Author Author Admin, ALEXA Organization [employer] [facility] Address Unknown Phone Unavailable Allergies, [...] tablet by mouth three times daily METRONIDAZOLE 10895269625 Active David Chew MD Active TRAMADOL HCL 50 MG TABS 1 po q6hrs prn pain TRAMADOL HCL 78044164255 Active David Chew MD Active PREDNISONE 20 MG TAB 2 tabs daily for 3 days, 1 tab daily for 3 days, 1/2 tab daily for 2 days PREDNISONE 76470054688 No Longer Active Jaycob Delvalle MD Active FLAGYL 500 MG TABS 1 tab BID for 7 days METRONIDAZOLE 40449898169 No Longer Active David Chew MD Active AMOXICILLIN 500 MG CAPS 1 CAP PO TID AMOXICILLIN 31641676955 No Longer Active Katie Ghotra MD Active FLAGYL 250 MG TABS 1 TAB PO BID METRONIDAZOLE 45353848599 No Longer Active Katie Ghotra MD Active PREDNISONE 20 MG TAB 3 tabs daily for 3 days, 2 tabs daily for 3 days, 1 tab daily for 3 days, 1/2 tab daily for 3 days PREDNISONE 51151380201 No Longer Active David Chew MD Active [facility]S 28-0.8 MG TABS VIT-FE FUMARATE-FA 73669301094 Active David Chew MD Active FLAGYL 250 MG TABS 1 TAB PO BID FLAGYL 250 MG TABS 849061 METRONIDAZOLE Inactive AMOXICILLIN 500 MG CAPS 1 CAP PO TID AMOXICILLIN 500 MG CAPS 927229 AMOXICILLIN Inactive FLAGYL 500 MG TABS 1 tab BID for 7 days FLAGYL 500 MG TABS 160718 METRONIDAZOLE Inactive PREDNISONE 20 MG TAB 2 tabs daily for 3 days, 1 tab daily for 3 days, 1/2 tab daily for 2 days PREDNISONE 20 MG TAB 761676 PREDNISONE Inactive PREDNISONE 20 MG TAB 3 tabs daily for 3 days, 2 tabs daily for 3 days, 1 tab daily for 3 days, 1/2 tab daily for 3 days PREDNISONE 20 MG TAB 399995 PREDNISONE Inactive Immunizations Vaccine Administration Date Value Standard Description Adacel (Tetanus, reduced Diphtheria, and acellular Pertussis Immunization) Adacel [[id number]] tetanus toxoid, reduced diphtheria toxoid, and acellular [...] Measured Encounters Code Encounter Date Provider Facility CPT-02845 Level 3 Est. Patient 18:33:30 CDT David Chew MD [facility] CPT-96142 Level 3 Est. Patient 15:42:57 CDT David Chew MD [facility] CPT-77437 Level 3 Est. Patient 17:04:12 CDT Jaycob Delvalle MD [facility] CPT-88515 Level 3 Est. Patient 13:47:10 CDT David Chew MD [facility] Procedures Code Procedure Name Date Entry Date Standard Description CPT-62494 BHCG Quant - LAB USE ONLY 17:05:18 CDT CPT-12000 Venipuncture Draw Fee 17:05:18 CDT CPT-88326 BHCG Quant - LAB USE ONLY 15:51:05 CDT CPT-45969 Venipuncture Draw Fee 15:51:05 CDT CPT-27315 Wet Mount - LAB USE ONLY 17:14:30 CDT CPT-80599 Administration single or combination vaccine inc oral 12 :27:32 CDT CPT-26816 Tdap 12:27:32 CDT CPT-51361 Visit 12:15:18 CDT CPT-53531 Visit 11:22:43 CDT CPT-65230 Spec Collection and Handling Fee 14:34:15 CDT CPT-24245 Visit 14:34:15 CDT
--- OUTSIDE RECORDS SUMMARY | 2017-07-06 08:01 | XMS REPORT | Clinical Summary ---
Author Author Admin, ALEXA Organization [employer] Address Unknown Phone Unavailable Allergies, Adverse Reactions, [...] elsewhere classified VAGINAL DISCHARGE 623.5 Active Katie Ghotar MD Leukorrhea, not specified as infective TOBACCOISM [...] tablet by mouth three times daily METRONIDAZOLE 67611999644 Active David Chew MD Active TRAMADOL HCL 50 MG TABS 1 po q6hrs prn pain TRAMADOL HCL 77790306368 Active David Chew MD Active PREDNISONE 20 MG TAB 2 tabs daily for 3 days, 1 tab daily for 3 days, 1/2 tab daily for 2 days PREDNISONE 89609279014 No Longer Active Jaycob Delvalle MD Active FLAGYL 500 MG TABS 1 tab BID for 7 days METRONIDAZOLE 45005799300 No Longer Active David Chew MD Active AMOXICILLIN 500 MG CAPS 1 CAP PO TID AMOXICILLIN 01616421963 No Longer Active Katie Ghotra MD Active FLAGYL 250 MG TABS 1 TAB PO BID METRONIDAZOLE 08618871088 No Longer Active Katie Ghotra MD Active PREDNISONE 20 MG TAB 3 tabs daily for 3 days, 2 tabs daily for 3 days, 1 tab daily for 3 days, 1/2 tab daily for 3 days PREDNISONE 05307898734 No Longer Active David Chew MD Active [facility]S 28-0.8 MG TABS VIT-FE FUMARATE-FA 10572872908 Active David Chew MD Active FLAGYL 250 MG TABS 1 TAB PO BID FLAGYL 250 MG TABS 886593 METRONIDAZOLE Inactive AMOXICILLIN 500 MG CAPS 1 CAP PO TID AMOXICILLIN 500 MG CAPS 494686 AMOXICILLIN Inactive FLAGYL 500 MG TABS 1 tab BID for 7 days FLAGYL 500 MG TABS 067402 METRONIDAZOLE Inactive PREDNISONE 20 MG TAB 2 tabs daily for 3 days, 1 tab daily for 3 days, 1/2 tab daily for 2 days PREDNISONE 20 MG TAB 923199 PREDNISONE Inactive PREDNISONE 20 MG TAB 3 tabs daily for 3 days, 2 tabs daily for 3 days, 1 tab daily for 3 days, 1/2 tab daily for 3 days PREDNISONE 20 MG TAB 258663 PREDNISONE Inactive Immunizations Vaccine Administration Date Value Standard Description Adacel (Tetanus, reduced Diphtheria, and acellular Pertussis Immunization) Adacel [[id number]] tetanus toxoid, reduced diphtheria toxoid, and acellular [...] Measured Encounters Code Encounter Date Provider Facility CPT-39585 Level 3 Est. Patient 18:33:30 CDT David Chew MD [facility] CPT-70470 Level 3 Est. Patient 15:42:57 CDT David Chew MD [facility] CPT-23485 Level 3 Est. Patient 17:04:12 CDT Jaycob Delvalle MD [facility] CPT-65132 Level 3 Est. Patient 13:47:10 CDT David Chew MD [facility] Procedures Code Procedure Name Date Entry Date Standard Description CPT-77351 BHCG Quant - LAB USE ONLY 15:51:05 CDT CPT-77785 Venipuncture Draw Fee 15:51:05 CDT CPT-31990 Wet Mount - LAB USE ONLY 17:14:30 CDT CPT-10553 Administration single or combination vaccine inc oral 12 :27:32 CDT CPT-33218 Tdap 12:27:32 CDT CPT-58881 Visit 12:15:18 CDT CPT-09059 Visit 11:22:43 CDT CPT-31730 Spec Collection and Handling Fee 14:34:15 CDT CPT-82247 Visit 14:34:15 CDT
--- OUTSIDE RECORDS SUMMARY | 2017-07-06 08:01 | XMS REPORT | Clinical Summary ---
Author Author Admin, ALEXA Organization [employer] Address Unknown Phone Unavailable Allergies, Adverse Reactions, [...] tablet by mouth three times daily METRONIDAZOLE 63131861050 Active David Chew MD Active TRAMADOL HCL 50 MG TABS 1 po q6hrs prn pain TRAMADOL HCL 25559136804 Active David Chew MD Active PREDNISONE 20 MG TAB 2 tabs daily for 3 days, 1 tab daily for 3 days, 1/2 tab daily for 2 days PREDNISONE 63056722600 No Longer Active Jaycob Delvalle MD Active FLAGYL 500 MG TABS 1 tab BID for 7 days METRONIDAZOLE 67366030454 No Longer Active David Chew MD Active AMOXICILLIN 500 MG CAPS 1 CAP PO TID AMOXICILLIN 11223191504 No Longer Active Katie Ghotra MD Active FLAGYL 250 MG TABS 1 TAB PO BID METRONIDAZOLE 64474384979 No Longer Active Katie Ghotra MD Active PREDNISONE 20 MG TAB 3 tabs daily for 3 days, 2 tabs daily for 3 days, 1 tab daily for 3 days, 1/2 tab daily for 3 days PREDNISONE 57375737023 No Longer Active David Chew MD Active [facility] 28-0.8 MG TABS VIT-FE FUMARATE-FA 12265644279 Active David Chew MD Active FLAGYL 250 MG TABS 1 TAB PO BID FLAGYL 250 MG TABS 843222 METRONIDAZOLE Inactive AMOXICILLIN 500 MG CAPS 1 CAP PO TID AMOXICILLIN 500 MG CAPS 975947 AMOXICILLIN Inactive FLAGYL 500 MG TABS 1 tab BID for 7 days FLAGYL 500 MG TABS 421792 METRONIDAZOLE Inactive PREDNISONE 20 MG TAB 2 tabs daily for 3 days, 1 tab daily for 3 days, 1/2 tab daily for 2 days PREDNISONE 20 MG TAB 163929 PREDNISONE Inactive PREDNISONE 20 MG TAB 3 tabs daily for 3 days, 2 tabs daily for 3 days, 1 tab daily for 3 days, 1/2 tab daily for 3 days PREDNISONE 20 MG TAB 275942 PREDNISONE Inactive Immunizations Vaccine Administration Date Value Standard Description Adacel (Tetanus, reduced Diphtheria, and acellular Pertussis Immunization) Adacel [[id number]] tetanus toxoid, reduced diphtheria toxoid, and acellular [...] Measured Encounters Code Encounter Date Provider Facility CPT-65001 Level 3 Est. Patient 18:33:30 CDT David Chew MD [facility] CPT-12075 Level 3 Est. Patient 15:42:57 CDT David Chew MD [facility] CPT-53018 Level 3 Est. Patient 17:04:12 CDT Jaycob Delvalle MD [facility] CPT-42467 Level 3 Est. Patient 13:47:10 CDT David Chew MD [facility] Procedures Code Procedure Name Date Entry Date Standard Description CPT-94260 BHCG Quant - LAB USE ONLY 17:05:18 CDT CPT-57667 Venipuncture Draw Fee 17:05:18 CDT CPT-51586 BHCG Quant - LAB USE ONLY 15:51:05 CDT CPT-64690 Venipuncture Draw Fee 15:51:05 CDT CPT-93832 Wet Mount - LAB USE ONLY 17:14:30 CDT CPT-83143 Administration single or combination vaccine inc oral 12 :27:32 CDT CPT-28843 Tdap 12:27:32 CDT CPT-41502 Visit 12:15:18 CDT CPT-79706 Visit 11:22:43 CDT CPT-21753 Spec Collection and Handling Fee 14:34:15 CDT CPT-09871 Visit 14:34:15 CDT
--- NOTE | 2017-07-06 08:24 | ED General ---
General Chief Complaint: Chest Wall/Rib Pain Stated Complaint: LT SIDE PAIN,MIGRAINE Source of Information: Patient Exam Limitations: No Limitations History of Present Illness Time Seen by Provider: 08:08 Initial Comments Here with report of left sided pain meds at the lower rib margin and radiates to her back. This started this morning. She has had migraine headache for the past 3 days that is frontal and typical. Also had diarrhea yesterday. She tried Tylenol and ibuprofen last evening and this did not help her pain. Denies vomiting blood or blood in her stool. Denies fever or chills. Timing/Duration: 4-6 Hours Severity: Moderate Modifying Factors: worse with Movement Associated Systoms: Chest Pain (left sided, sharp, onset this am. ), Headaches , No Nausea/Vomiting Allergies and Home Medications Allergies Coded Allergies: latex (Verified Allergy, Unknown, 07/06/17) ondansetron (Verified Allergy, Unknown, 07/06/17) Constitutional: see HPI, No chills, No fever EENTM: no symptoms reported Respiratory: No cough, No short of breath Cardiovascular: see HPI, chest pain (left low chest wall), No palpitations Gastrointestinal: abdominal pain (LUQ), diarrhea, No nausea, No vomiting Genitourinary: no symptoms reported Musculoskeletal: see HPI, muscle pain Skin: no symptoms reported Psychiatric/Neurological: No Symptoms Reported All Other Systems Reviewed Negative Unless Noted: Yes Past Lusaobt-Vybwgz-Dfrfkc Hx Patient Social History Alcohol Use: Denies Use Recreational Drug Use: No Smoking Status: Current Everyday Smoker (She's) Recent Foreign Travel: No Contact w/Someone Who Travel: No Surgeries HX Surgeries: No Respiratory Hx Respiratory Disorders: No Cardiovascular Hx Cardiac Disorders: No Neurological Hx Neurological Disorders: Yes Neurological Disorders: Headaches /Migraines Gastrointestinal Hx Gastrointestinal Disorders: No Musculoskeletal Hx Musculoskeletal Disorders: No Reviewed Nursing Assessment Reviewed/Agree w Nursing PMH: Yes Family Medical History Significant Family History: No Pertinent Family Hx Physical Exam Vital Signs Vital Sign - Last 12Hours 07/06/17 08:15 Temp 98.2 Pulse 68 Resp 18 B/P (MAP) 118/72 Pulse Ox 97 O2 Delivery Room Air Capillary Refill : Less Than 3 Seconds General Appearance: No Apparent Distress, WD/WN HEENT: PERRL/EOMI, Pharynx Normal Neck: Non Tender, Supple Respiratory: Lungs Clear, Normal Breath Sounds Cardiovascular: Regular Rate, Rhythm, No Murmur Gastrointestinal: Soft, Tenderness (mild tenderness at the area of the left upper quadrant rib margin border. This also goes to the flank and somewhat to the back.) Back: No Vertebral Tenderness, CVA Tenderness (L) (mild), No CVA Tenderness (R) Extremity: Normal Capillary Refill Neurologic/Psychiatric: Alert, Oriented x3 Skin: Normal Color, Warm/Dry Progress/Results/Core Measures Results/Orders Lab Results Laboratory Tests Test 07/06/17 09:05 Range/Units White Blood Count 5.4 4.3-11.0 10^3/uL Red Blood Count 4.28 L 4.35-5.85 10^6/uL Hemoglobin 13.2 11.5-16.0 G/DL Hematocrit 39 35-52 % Mean Corpuscular Volume 90 80-99 FL Mean Corpuscular Hemoglobin 31 25-34 PG Mean Corpuscular Hemoglobin Concent 34 32-36 G/DL Red Cell Distribution Width 12.4 10.0-14.5 % Platelet Count 273 130-400 10^3/uL Mean Platelet Volume 9.3 7.4-10.4 FL Neutrophils (%) (Auto) 43 42-75 % Lymphocytes (%) (Auto) 43 12-44 % Monocytes (%) (Auto) 8 0-12 % Eosinophils (%) (Auto) 5 0-10 % Basophils (%) (Auto) 1 0-10 % Neutrophils # (Auto) 2.3 1.8-7.8 X 10^3 Lymphocytes # (Auto) 2.4 1.0-4.0 X 10^3 Monocytes # (Auto) 0.4 0.0-1.0 X 10^3 Eosinophils # (Auto) 0.3 0.0-0.3 10^3/uL Basophils # (Auto) 0.0 0.0-0.1 10^3/uL Urine Color YELLOW Urine Clarity CLEAR Urine pH 5 5-9 Urine Specific [place] 1.025 H 1.016-1.022 Urine Protein NEGATIVE NEGATIVE Urine Glucose (UA) NEGATIVE NEGATIVE Urine Ketones NEGATIVE NEGATIVE Urine Nitrite NEGATIVE NEGATIVE Urine Bilirubin NEGATIVE NEGATIVE Urine Urobilinogen NORMAL NORMAL MG/DL Urine Leukocyte Esterase 1+ H NEGATIVE Urine RBC (Auto) NEGATIVE NEGATIVE Urine RBC NONE /HPF Urine WBC 2-5 /HPF Urine Squamous Epithelial Cells 5-10 /HPF Urine Crystals NONE /LPF Urine Bacteria FEW H /HPF Urine Casts NONE /LPF Urine Mucus MODERATE H /LPF Urine Culture Indicated NO Sodium Level 138 135-145 MMOL/L Potassium Level 4.0 3.6-5.0 MMOL/L Chloride Level 110 H 98-107 MMOL/L Carbon Dioxide Level 20 L 21-32 MMOL/L Anion Gap 8 5-14 MMOL/L Blood Urea Nitrogen 14 7-18 MG/DL Creatinine 0.67 0.60-1.30 MG/DL Estimat Glomerular Filtration Rate > 60 BUN/Creatinine Ratio 21 Glucose Level 94 70-105 MG/DL Calcium Level 9.0 8.5-10.1 MG/DL Total Bilirubin 0.6 0.1-1.0 MG/DL Aspartate Amino Transf (AST/SGOT) 10 5-34 U/L Alanine Aminotransferase (ALT/SGPT) 7 0-55 U/L Alkaline Phosphatase 56 40-136 U/L Total Protein 7.2 6.4-8.2 GM/DL Albumin 4.1 3.2-4.5 GM/DL Amylase Level 35 25-125 U/L Lipase 15 8-78 U/L My Orders Orders - MARCELINO SWIFT MD Urine Bedside (07/06/17 08:07) Chest Pa/Lat (2 View) (07/06/17 08:07) Amylase (07/06/17 08:54) Cbc With Automated Diff (07/06/17 08:54) Comprehensive Metabolic Panel (07/06/17 08:54) Lipase (07/06/17 08:54) Ua Culture If Indicated (07/06/17 08:54) Ketorolac Injection (Toradol Injection) (07/06/17 08:54) Saline Lock/Iv-Start (07/06/17 08:54) Ns Iv 1000 Ml (Sodium Chloride 0.9%) (07/06/17 08:54) Promethazine Injection (Phenergan Injec (07/06/17 08:54) Diphenhydramine Injection (Benadryl Inje (07/06/17 09:00) Medications Given in ED Current Medications Medications Dose Ordered Sig/Digna Route Start Time Stop Time Status Last Admin Dose Admin Diphenhydramine HCl 25 mg ONCE ONCE IV 07/06/17 09:00 07/06/17 09:01 DC 07/06/17 09:36 25 MG Sodium Chloride 1,000 ml @ 0 mls/hr Q0M ONCE IV 07/06/17 08:54 07/06/17 08:57 DC 07/06/17 09:36 1,000 MLS/HR Vital Signs/I&O Vital Sign - Last 12Hours 07/06/17 08:15 Temp 98.2 Pulse 68 Resp 18 B/P (MAP) 118/72 Pulse Ox 97 O2 Delivery Room Air Progress Note : Progress Note Seen and evaluated. Chest x-ray and UCG ordered. IV, labs, UA, normal saline 1 L bolus, Toradol 30 mg IV, Phenergan 12.5 mg IV and Benadryl 25 mg IV ordered. Monitor patient. 1115: Patient markedly improved. No acute findings on chest x-ray. Labs do not indicate any significant abnormality. Discharged home with return precautions. Patient verbalize understanding instructions and agreement with plan. Diagnostic Imaging Diagonstic Imaging: Xray Plain Films/CT/US/NM/MRI: chest Comments VIA [place], [place] NAME: SAI NETTLES [facility] REC#: [id number] PT STATUS: REG ER : 1990 PHYSICIAN: MARCELINO SWIFT MD ADMIT DATE: 07/06/17/ER Draft Date of Exam:07/06/17 CHEST PA/LAT (2 VIEW) PA and lateral chest at 9:57 AM. INDICATION: Left rib pain. There are no prior studies available for comparison. The heart size is within normal limits. The lungs are clear. There is no evidence for pneumonia or for a pleural effusion. There is no sign of a pneumothorax. The mediastinum is not widened. The osseous structures are intact. IMPRESSION: There is no evidence for an acute cardiopulmonary or bony abnormality. Dictated on workstation # [id number] Dict: 07/06/17 0954 Trans: 07/06/17 0957 [id number] Interpreted by: GIULIA AVALOS MD Electronically signed by: Departure Impression Impression: Primary Impression: Chest wall pain Additional Impression: Migraine headache Qualified Codes: G43.009 - Migraine without aura, not intractable, without status migrainosus Disposition: HOME, SELF-CARE Condition: Improved Departure-Patient Inst. Decision time for Depature: 11:19 Referrals: NO,LOCAL PHYSICIAN (PCP/Family) Primary Care Physician Patient Instructions: Chest Pain (DC), Migraine Headache (DC) Add. Discharge Instructions: All discharge instructions reviewed with patient and/or family. Voiced understanding. You may take ibuprofen and/or Tylenol as needed for headache or pain. Drink plenty of fluids. Follow up with your Dr. in a few days for recheck. Return for worsening, fever, vomiting, weakness, breathing problems or other concerns as needed. MARCELINO SWIFT MD Jul 06, 2017 08:24
[2017-07-06] MEDS ORDERED: PROMETHAZINE INJ 25 MG/ML (PHENERGAN) AMP IVP STA (08:54)
[2017-07-06] MEDS ORDERED: KETOROLAC 30 MG/ML VIAL IVP STA (08:54)
[2017-07-06] MEDS ORDERED: NS IV 1000 ML 1,000 ML IV ONE (08:54)
[2017-07-06] MEDS ORDERED: diphenhydrAMINE 50 MG/ML INJ (BENADRYL) IV ONE (09:00)
[2017-07-06 09:15] LABS: BASOPHILS % (AUTO) 1 % (0-10); EOSINOPHILS # (AUTO) 0.3 10^3/uL (0.0-0.3); EOSINOPHILS % (AUTO) 5 % (0-10); LYMPHOCYTES # (AUTO) 2.4 X 10^3 (1.0-4.0); LYMPHOCYTES % (AUTO) 43 % (12-44); MEAN CORPUSCULAR HEMOGLOBIN 31 PG (25-34); MEAN CORPUSCULAR HGB CONC 34 G/DL (32-36); MEAN CORPUSCULAR VOLUME 90 FL (80-99); MEAN PLATELET VOLUME 9.3 FL (7.4-10.4); MONOCYTES # (AUTO) 0.4 X 10^3 (0.0-1.0); MONOCYTES % (AUTO) 8 % (0-12); NEUTROPHILS # (AUTO) 2.3 X 10^3 (1.8-7.8); NEUTROPHILS % (AUTO) 43 % (42-75); PLATELET COUNT 273 10^3/uL (130-400); RED BLOOD COUNT 4.28 10^6/uL (4.35-5.85); RED CELL DISTRIBUTION WIDTH 12.4 % (10.0-14.5); WHITE BLOOD COUNT 5.4 10^3/uL (4.3-11.0)
[2017-07-06 09:16] LABS: BILIRUBIN,URINE NEGATIVE (NEGATIVE); KETONES,URINE NEGATIVE (NEGATIVE); LEUKOCYTE ESTERASE ,URINE 1+ (NEGATIVE); NITRITE,URINE NEGATIVE (NEGATIVE); PH,URINE 5 (5-9); PROTEIN,URINE NEGATIVE (NEGATIVE); UROBILINOGEN,URINE NORMAL (NORMAL)
[2017-07-06 09:35] LABS: ALANINE AMINOTRANSFERASE 7 U/L (0-55); ALBUMIN 4.1 GM/DL (3.2-4.5); AMYLASE 35 U/L (25-125); ANION GAP 8 MMOL/L (5-14); ASPARTATE AMINO TRANSFERASE 10 U/L (5-34); BILIRUBIN,TOTAL 0.6 MG/DL (0.1-1.0); BLOOD UREA NITROGEN 14 MG/DL (7-18); BUN/CREATININE RATIO 21; CARBON DIOXIDE 20 MMOL/L (21-32); CHLORIDE 110 MMOL/L (98-107); CREATININE SERUM 0.67 MG/DL (0.60-1.30); GFR ESTIMATED > 60; GLUCOSE 94 MG/DL (70-105); LIPASE 15 U/L (8-78); SODIUM 138 MMOL/L (135-145); TOTAL PROTEIN 7.2 GM/DL (6.4-8.2)
--- NOTE | 2017-07-06 09:57 | Diagnostic Imaging Report ---
PA and lateral chest at 9:57 AM. INDICATION: Left rib pain. There are no prior studies available for comparison. The heart size is within normal limits. The lungs are clear. There is no evidence for pneumonia or for a pleural effusion. There is no sign of a pneumothorax. The mediastinum is not widened. The osseous structures are intact. IMPRESSION: There is no evidence for an acute cardiopulmonary or bony abnormality. Dictated by: Dictated on workstation # [id number]
[2017-07-06 11:38] VITALS: BP 118/72
== END 2017-07-06 11:38 | disposition home or self-care (01) ==
LOC: ER 07:51
DX: R07.89 Other chest pain (principal); G43.909 Migraine, unspecified, not intractable, without status migrainosus; F17.200 Nicotine dependence, unspecified, uncomplicated
CPT/HCPCS: 36415; 71020; 80053; 81000; 82150; 83690; 84703; 85025; 96361; 96374; 96375

== ENCOUNTER → 2017-09-01 | Outpatient (CLI) | payer MEDICAID ==
--- NOTE | 2017-09-01 16:36 | Diagnostic Imaging Report ---
PROCEDURE: US OB SINGLE FETUS <14 WKS. TECHNIQUE: Multiple real-time grayscale images were obtained over the gravid uterus in various projections. INDICATION: Dating. FINDINGS: There is a single intrauterine with unfortunately no cardiac activity detected compatible with embryo demise. The crown-rump length is at 8 weeks and 6 days of gestation. IMPRESSION: Embryo demise. The findings were called by the mechanical engineering technologist who performed the exam, Ms. Jeannine Maya, to Dr. Dale at 1525 hours. Dictated by: Dictated on workstation # [id number]
== END ==
LOC: RAD 14:48
PROVIDERS: ATTEND Family Medicine
DX: O36.4XX0 Maternal care for intrauterine death, not applicable or unspecified (principal); Z3A.08 8 weeks gestation of pregnancy
CPT/HCPCS: 76801

== ENCOUNTER 2017-09-08 09:42 | Emergency (ER) | payer MEDICAID ==
[~2017-09-08] VITALS: Ht 165.1 cm; Wt 61.7 kg
[2017-09-08] MEDS ORDERED: AMIT10TA6 PO (10:11)
--- NOTE | 2017-09-08 11:29 | ED GU-Female ---
General Chief Complaint: Abdominal/GI Problems Stated Complaint: ABNORMAL CRAMPING AND PASSING CLOTS Nursing Triage Note: Pt c/o lower abd cramping. Pt states she had a miscarriage on 09/04 and began to bleed heavily again last night. Pt denies vaginal bleeding at this time but reports continued cramping. Pt states she just wants to make sure everything passed the way it should have. Nursing Sepsis Screen: No Definite Risk Source: patient Exam Limitations: no limitations History of Present Illness Time seen by provider: 11:23 Initial Comments The patient is a 26-year-old white female who is 6 para 4 aborta 1. She states that she had a sonogram done last week which showed no heartbeat. She was given a medication by Dr. PEREZ to evacuate the products. She reports that she had a large flow and some passage of whitish material. She is alarmed because she continues to have cramping although it is lessening. Timing/Duration: week, getting worse Severity/Quality: moderate Allergies and Home Medications Allergies Coded Allergies: latex (Verified Allergy, Unknown, 07/06/17) ondansetron (Verified Allergy, Unknown, 07/06/17) Home Medications Amitriptyline HCl 10 Mg Tablet, Unknown Dose PO DAILY, (Reported) Constitutional: see HPI EENTM: no symptoms reported Respiratory: no symptoms reported Cardiovascular: no symptoms reported Gastrointestinal: no symptoms reported Genitourinary: see HPI Musculoskeletal: no symptoms reported Skin: no symptoms reported Psychiatric/Neurological: No Symptoms Reported Endocrine: No Symptoms Reported Hematologic/Lymphatic: No Symptoms Reported Past Drvebid-Nhsrtg-Ihawqb Hx Patient Social History Alcohol Use: Denies Use 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) Drug of Choice: METHAMPHETAMINE Smoking Status: Former Smoker Type Used: Cigarettes 2nd Hand Smoke Exposure: Yes Recent Foreign Travel: No Contact w/Someone Who Travel: No Recent Infectious Disease Expo: No Recent Hopitalizations: No Physical Abuse: No Sexual Abuse: No Seasonal Allergies Seasonal Allergies: No Surgeries History of Surgeries: Yes (wisdom teeth) Respiratory History of Respiratory Disorde: No Cardiovascular History of Cardiac Disorders: No Neurological History of Neurological Disord: Yes Neurological Disorders: Headaches /Migraines Genitourinary History of Genitourinary Disor: No Gastrointestinal History of Gastrointestinal Di: No Musculoskeletal History of Musculoskeletal Dis: No Endocrine History of Endocrine Disorders: No HEENT History of HEENT Disorders: No Cancer History of Cancer: No Psychosocial History of Psychiatric Problem: No Suicide Risk Score: 0 Blood Transfusions History of Blood Disorders: No Family Medical History Significant Family History: No Pertinent Family Hx Physical Exam Vital Signs Vital Sign - Last 12Hours 09/08/17 10:06 Pulse 75 Resp 18 B/P (MAP) 96/53 Pulse Ox 99 O2 Delivery Room Air Capillary Refill : Less Than 3 Seconds General Appearance: no apparent distress HEENT: normal ENT inspection Neck: non-tender, full range of motion, supple, normal inspection Cardiovascular: normal peripheral pulses, regular rate, rhythm, no edema, no gallop, no JVD, no murmur Respiratory: chest non-tender, lungs clear, normal breath sounds, no respiratory distress, no accessory muscle use, respiratory distress Gastrointestinal: normal bowel sounds, non tender, soft, no organomegaly, no pulsatile mass, abnormal bowel sounds Back: normal inspection, no CVA tenderness, no vertebral tenderness, CVA tenderness (R), CVA tenderness (L) Extremities: normal range of motion, non-tender, normal inspection, no pedal edema, no calf tenderness, normal capillary refill, pelvis stable Neurologic/Psychiatric: fraud representative II-XII nml as tested, no motor/sensory deficits, alert, normal mood/affect, oriented x 3 Skin: normal color, warm/dry Lymphatic: no adenopathy Progress/Results/Core Measures Results/Orders My Orders Orders - JULIENNE CUTLER MD Ob Single Fetus<14 [id number] (09/08/17 11:33) Vital Signs/I&O Vital Sign - Last 12Hours 09/08/17 10:06 Pulse 75 Resp 18 B/P (MAP) 96/53 Pulse Ox 99 O2 Delivery Room Air Blood Pressure Mean: 67 Departure Impression Impression: Primary Impression: miscarriage of known nonviable fetus Disposition: 01 HOME, SELF-CARE Condition: Stable/Unchanged Departure-Patient Inst. Decision time for Depature: 11:28 Referrals: LUZ PEREZ DO (PCP/Family) Primary Care Physician Add. Discharge Instructions: All discharge instructions reviewed with patient and/or family. Voiced understanding. Expect bleeding and cramping to mercedes as with a large menstrual period. If continued problems see your OB provider. JULIENNE CUTLER MD Sep 08, 2017 11:29
--- NOTE | 2017-09-08 12:09 | Diagnostic Imaging Report ---
PROCEDURE: US OB SINGLE FETUS <14 WKS. TECHNIQUE: Multiple real-time grayscale images were obtained over the gravid uterus in various projections. INDICATION: Pelvic bleeding and cramping. History of embryo demise. FINDINGS: The uterus is 9.3 x 5.3 x 5.8 cm. The endometrial stripe is thickened at 2.2 cm with slight heterogeneity but without internal vascularity. The left ovary is 2.1 x 3.3 x 1.7 cm in size and appears normal with color Doppler seen. The right ovary is not seen, likely obscured by bowel gas. IMPRESSION: 1. Slight thickening and heterogeneity in the endometrial stripe with no internal vascularity noted. This could relate to remaining clot. 2. Retained products of conception is possible although is not confirmed without increased Doppler vascularity. Correlate clinically and with followup exams. Dictated by: Dictated on workstation # [id number]
[2017-09-08 12:41] VITALS: BP 96/53
== END 2017-09-08 12:41 | disposition home or self-care (01) ==
LOC: EDUNIT# 09:42 → ER 09:44
DX: O03.9 Complete or unspecified spontaneous abortion without complication (principal); O99.351 Diseases of the nervous system complicating pregnancy, first trimester; G43.909 Migraine, unspecified, not intractable, without status migrainosus; Z87.891 Personal history of nicotine dependence; Z3A.00 Weeks of gestation of pregnancy not specified
CPT/HCPCS: 76801; 99282